=== PATIENT | male | born 1970 | race Caucasian/White ===

== ENCOUNTER 2017-09-05 10:02 | Inpatient (IN) | payer BC ==
[2017-09-05 10:22] VITALS: BMI 21.4
--- NOTE | 2017-09-05 13:09 | HP ---
COWS - Scale Resting Pulse: 1= [place] 81-100 Sweatin= Chills/Flushing Restless Observation: 3= Extraneous Movement Pupil Size: 2= Moderately Dilated Bone or Joint Aches: 4=Acute Joint/Muscle Pain Runny Nose/ Eye Tearin= Runny Nose/Eyes GI Upset > 30mins: 2= Nausea/Diarrhea Tremor Observation: 1= Tremor [place], Not Seen Yawning Observation: 1= 1-2x During Session Anxiety or Irritability: 2=Irritable/Anxious Goose Flesh Skin: 0=Smooth Skin COWS Score: 19 CIWA Score - CIWA Score Nausea/Vomitin (NAUSEA, NO VOMITING) Muscle Tremors: 3 Anxiety: 4-Mod. Anxious/Guarded Agitation: 4-Moderately Restless Paroxysmal Sweats: 1-Minimal Palms Moist Orientation: 0-Oriented Tacttile Disturbances: 3-Moderate Itch/Numb/Burn Auditory Disturbances: 0-None Visual Disturbances: 0-None Headache: 0-None Present CIWA-Ar Total Score: 18 Admission ROS S - HPI Chief Complaint: WITHDRAWAL SX FRO ALCOHOL AND HEROIN Allergies/Adverse Reactions: Allergies Allergy/AdvReac Type Severity Reaction Status Date / Time Fish Containing Products Allergy Severe Hives Verified 09/05/17 12:29 No Known Drug Allergies Allergy Verified 09/05/17 12:29 History of Present Illness: 47 Y/O H/M WITH A HX OF ALCOHOL, HEROIN AND COCAINE DEPENDENCE SEEKING DETOX TX. PT HAS MULTIPLE TX EPISODES. PT IS CURRENTLY ON ANTIRETROVIRAL THERAPY. VERIFIED WITH PT'S PHARMACIST, CHEY AT [address] [place] [address] PHARMACY. Exam Limitations: No Limitations - Ebola screening Have you traveled outside of the country in the last 21 days: No (N) Have you had contact with anyone from an Ebola affected area: No Have you been sick,other than usual withdrawal symptoms: No Do you have a fever: No - Review of Systems Constitutional: Chills, Loss of Appetite, Night Sweats, Changes in sleep, Unintentional Wgt. Loss EENT: reports: Blurred Vision, Tearing, Nose Congestion, Dental Problems (UPPER DENTURE) Respiratory: reports: Shortness of Breath (HX ASTHMA), Wheezing Cardiac: reports: No Symptoms Reported GI: reports: Constipated, Diarrhea, Nausea, Poor Appetite, Poor Fluid Intake, Abdominal cramping : reports: No Symptoms Reported Musculoskeletal: reports: Back Pain, Muscle Pain Integumentary: reports: No Symptoms Reported Neuro: reports: Tremors Endocrine: reports: No Symptoms Reported Hematology: reports: Anemia Psychiatric: reports: Orientated x3, Anxious, Depressed Other Systems: Reviewed and Negative Patient History - Patient Medical History Hx Anemia: Yes (taking medication) Hx Asthma: Yes (Pt is on MDI.) Hx Chronic Obstructive Pulmonary Disease (COPD): No Hx Cancer: No Hx Cardiac Disorders: No Hx Congestive Heart Failure: No Hx Hypertension: No Hx Hypercholesterolemia: No Hx Pacemaker: No HX Cerebrovascular Accident: No Hx Seizures: No Hx Dementia: No Hx Diabetes: No Hx Gastrointestinal Disorders: No Hx Liver Disease: No Hx Genitourinary Disorders: No Hx Sexually Transmitted Disorders: No Hx Renal Disease (ESRD): No Hx Thyroid Disease: No Hx Human Immunodeficiency Virus (HIV): Yes (AIDS-FROILANADA,NESTOR,REMAT) Hx Hepatitis C: No Hx Depression: Yes Hx Suicide Attempt: Yes (Tried to overdose in 2013;DENIES S/H IDEATION) Hx Bipolar Disorder: Yes Hx Schizophrenia: No - Patient Surgical History Past Surgical History: No Hx Neurologic Surgery: No Hx Cataract Extraction: No Hx Cardiac Surgery: No Hx Lung Surgery: No Hx Breast Surgery: No Hx Breast Biopsy: No Hx Abdominal Surgery: No Hx Appendectomy: No Hx Cholecystectomy: No Hx Genitourinary Surgery: No Hx Orthopedic Surgery: No Anesthesia Reaction: No - PPD History Previous Implant?: Yes Documented Results: Negative w/o proof Implanted On Prior [facility] Admission?: Yes Date: 10/18/15 Results: 0 mm PPD to be Administered?: Yes - Reproductive History Patient is a Female of Child Bearing Age (11 -55 yrs old): No (MALE) - Smoking Cessation Smoking history: Current every day smoker Have you smoked in the past 12 months: Yes Aproximately how many cigarettes per day: 20 Hx Chewing Tobacco Use: No Initiated information on smoking cessation: Yes 'Breaking Loose' booklet given: 09/05/17 - Substance & Tx. History Hx Alcohol Use: Yes (VODKA) Hx Substance Use: Yes (HEROIN/COCAINE) Substance Use Type: Alcohol, Cocaine, Heroin Hx Substance Use Treatment: Yes (LAST TX AT [facility] ) - Substances Abused Heroin Route: Inhalation Frequency: Daily Amount used: 20 bags Age of first use: 18 Date of Last Use: 09/04/17 Alcohol Route: Oral Frequency: Daily Amount used: 1 pint vodka Age of first use: 14 Date of Last Use: 09/04/17 Cocaine Route: Smoking Frequency: Daily Amount used: 20 bags Age of first use: 30 Date of Last Use: 09/04/17 Family Disease History - Family Disease History Family Disease History: Diabetes: Grandparent (HTN-), Father (HTN- ), Mother (HTN), Other: Grandparent, Father, Mother Admission Physical Exam [facility] - Vital Signs Vital Signs: Vital Signs - 24 hr 09/05/17 10:21 Temperature 98.2 F Pulse Rate 96 H Respiratory 18 Rate Blood Pressure 150/85 - Physical General Appearance: Yes: Moderate Distress, Irritable, Anxious HEENTM: Yes: EOMI, Normocephalic, JACQUELINE, Pharynx Normal, Nasal Congestion, Rhinorrhea Respiratory: Yes: Chest Non-Tender, No Respiratory Distress, Wheezing Neck: Yes: No masses,lesions,Nodules, Supple, Trachea in good position Breast: Yes: Breast Exam Deferred Cardiology: Yes: Regular Rhythm, Regular Rate, S1, S2 Abdominal: Yes: Normal Bowel Sounds, Non Tender, Flat Genitourinary: Yes: Other (N/C) Back: Yes: Within Normal Limits Musculoskeletal: Yes: full range of Motion, Gait Steady Extremities: Yes: Normal Range of Motion, Non-Tender Neurological: Yes: 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 NML intact, Fully Oriented, Alert, Motor Strength 5/5 Integumentary: Yes: Dry, Warm Lymphatic: Yes: Within Normal Limits - Diagnostic (1) Alcohol dependence with uncomplicated withdrawal Current Visit: Yes Status: Acute (2) Asthma Current Visit: Yes Status: Chronic (3) Cocaine dependence, uncomplicated Current Visit: Yes Status: Acute (4) AIDS Current Visit: Yes Status: Chronic (5) Opioid dependence with withdrawal Current Visit: Yes Status: Acute (6) Anemia Current Visit: Yes Status: Suspected Cleared for Admission [facility] - Detox or Rehab [facility] Level of Care: Medically Managed Detox Regimen/Protocol: Methadone/Librium [facility] Breath Alcohol Content Breath Alcohol Content: 0 Urine Drug Screen - Results Drug Screen Negative: No Urine Drug Screen Results: RD-Cocaine, OPI-Opiates, BZO-Benzodiazepines
[2017-09-05] MEDS ORDERED: chlordiazePOXIDE HCL 25 MG CAPSULE PO PRN (13:25)
[2017-09-05] MEDS ORDERED: MAGNESIUM HYDROX 2400MG/30ML ORAL SUSPENSION 30 ML CUP PO PRN (13:25)
[2017-09-05] MEDS ORDERED: MAG HYDROX/AL HYDROX/SIMETH 30 ML UNIT-DOSE CUP PO PRN (13:25)
[2017-09-05] MEDS ORDERED: NICOTINE POLACRILEX 4 MG GUM BC PRN (13:25)
[2017-09-05] MEDS ORDERED: ACETAMINOPHEN 325 MG TABLET (FP) PO PRN (13:25)
[2017-09-05] MEDS ORDERED: P-EPHED 60MG/TRIPROLIDI 2.5MG TABLET PO PRN (13:25)
[2017-09-05] MEDS ORDERED: IBUPROFEN 400 MG TABLET (FP) PO PRN (13:25)
[2017-09-05] MEDS ORDERED: MAGNESIUM CITRATE 300 ML BOTTLE PO PRN (13:25)
[2017-09-05] MEDS ORDERED: LOPERAMIDE HCL 2 MG CAPSULE PO PRN (13:25)
[2017-09-05] MEDS ORDERED: guaiFENesin/D-METHORPHAN HB 10 ML UNIT-DOSE CUPS PO PRN (13:25)
[2017-09-05] MEDS ORDERED: MENTHOL/PHENOL 1 EACH UD MM PRN (13:25)
[2017-09-05] MEDS ORDERED: ALBUTEROL SO4 0.083% IH SOL 2.5 MG/3 ML VIAL.NEB. NEB SCH (14:00)
[2017-09-05] MEDS ORDERED: RITONAVIR 100 MG TABLET PO SCH (15:30)
[2017-09-05] MEDS ORDERED: EMTRICITABINE 200MG/TENOFOVIR 300MG PO SCH (15:30)
[2017-09-05] MEDS ORDERED: chlordiazePOXIDE HCL 25 MG CAPSULE PO ONE (15:30)
[2017-09-05] MEDS ORDERED: METHADONE HCL 10 MG TABLET (FOR DETOX USE ONLY) PO ONE ×2 (15:30→23:00)
[2017-09-05] MEDS: chlordiazePOXIDE HCL 25 MG CAPSULE PO SCH ×2 (16:55→22:29)
[2017-09-05] MEDS: SULFAMETHOXAZOLE/TRIMETHOPRIM 800MG/160MG D.S. TABLET PO SCH (16:56)
[2017-09-05] MEDS: ATAZANAVIR SO4 300 MG CAPSULE PO SCH (16:56)
[2017-09-05] MEDS: NICOTINE 21 MG/24 HOURS TOPICAL PATCH TD SCH (17:00)
[2017-09-05 17:15] LABS: HEMATOCRIT 44.1 % (35.4-49); MCH 28.7 pg (25.7-33.7); MCHC 31.7 g/dl (32.0-35.9); MEAN CELL VOLUME 90.5 fl (80-96); MEAN PLT VOLUME 10.4 fl (7.5-11.1); PLATELET COUNT 175 K/MM3 (134-434); RBC 4.87 M/mm3 (4.00-5.60); WHITE BLOOD COUNT 3.7 K/mm3 (4.0-10.0)
[2017-09-05 17:23] LABS: ALBUMIN 3.4 g/dl (3.4-5.0); ANION GAP 5 (8-16); BILIRUBIN,TOTAL 0.5 mg/dL (0.2-1.0); BLOOD UREA NITROGEN 8 mg/dL (7-18); CALCIUM 8.5 mg/dL (8.5-10.1); CHLORIDE 108 mmol/L (98-107); CO2 31 mmol/L (21-32); CREATININE 1.1 mg/dL (0.7-1.3); GLUCOSE,RANDOM 103 mg/dL (74-106); POTASSIUM 3.8 mmol/L (3.5-5.1); SGOT/AST 28 U/L (15-37); SGPT/ALT 24 U/L (12-78); SODIUM 144 mmol/L (136-145); TOT PROT 7.6 g/dl (6.4-8.2)
[2017-09-05 17:24] LABS: ALK PHOS 90 U/L (45-117)
[2017-09-05] MEDS: ALBUTEROL SO4 18 GM HFA INHALER IH PRN (21:21)
[2017-09-05] MEDS: THIAMINE HCL 100 MG TABLET (FP) PO SCH (22:28)
[2017-09-06] MEDS: ALBUTEROL SO4 0.083% IH SOL 2.5 MG/3 ML VIAL.NEB. NEB PRN ×2 (04:29→15:45)
[2017-09-06 05:08] LABS: URINE APPEARANCE TURBID; URINE BILIRUBIN NEGATIVE (NEGATIVE); URINE BLOOD NEGATIVE (NEGATIVE); URINE COLOR DKYELLOW; URINE GLUCOSE (UA) NEGATIVE (NEGATIVE); URINE KETONE NEGATIVE (NEGATIVE); URINE LEUK ESTERASE NEGATIVE (NEGATIVE); URINE NITRITE NEGATIVE (NEGATIVE); URINE PROTEIN NEGATIVE (NEGATIVE); URINE UROBILINOGEN NEGATIVE mg/dL (0.2-1.0)
[2017-09-06] MEDS: chlordiazePOXIDE HCL 25 MG CAPSULE PO SCH ×4 (06:19→22:46)
[2017-09-06] MEDS: ALBUTEROL SO4 18 GM HFA INHALER IH PRN ×2 (06:21→18:23)
[2017-09-06] MEDS: EMTRICITABINE 200MG/TENOFOVIR 300MG PO SCH (08:22)
[2017-09-06] MEDS: ATAZANAVIR SO4 300 MG CAPSULE PO SCH (08:22)
[2017-09-06] MEDS: RITONAVIR 100 MG TABLET PO SCH (08:22)
[2017-09-06] MEDS ORDERED: METHADONE HCL 10 MG TABLET (FOR DETOX USE ONLY) PO SCH (10:00)
--- NOTE | 2017-09-06 10:03 | PN ---
[facility] CIWA - CIWA Score Nausea/Vomitin Muscle Tremors: 3 Anxiety: 3 Agitation: 2 Paroxysmal Sweats: 1-Minimal Palms Moist Orientation: 0-Oriented Tacttile Disturbances: 1-Very Mild Itch/Numbness Auditory Disturbances: 1-Very Mild Visual Disturbances: 0-None Headache: 2-Mild CIWA-Ar Total Score: 16 [facility] COWS - Scale Resting Pulse: 2= [place] 101-120 Sweatin= Chills/Flushing Restless Observation: 3= Extraneous Movement Pupil Size: 1= Pupils >than Normal Bone or Joint Aches: 2= Severe Diffuse Aches Runny Nose/ Eye Tearin= Runny Nose/Eyes GI Upset > 30mins: 2= Nausea/Diarrhea Tremor Observation of Outstretched Hands: 2= Slight Tremor Visible Yawning Observation: 1= 1-2x During Session Anxiety or Irritability: 2=Irritable/Anxious Goose Flesh Skin: 0=Smooth Skin COWS Score: 18 S Progress Note (SOAP) Subjective: ALERT,IRRITABLE,ANXIOUS,INTERRUPTED SLEEP,TREMOR,PAIN IN THE BODY AND BACK Objective: 09/06/17 10:02 Vital Signs Temperature 96.1 F L 09/06/17 09:55 Pulse Rate 103 H 09/06/17 09:55 Respiratory Rate 20 09/06/17 09:55 Blood Pressure 131/91 09/06/17 09:55 O2 Sat by Pulse Oximetry (%) EKG NSR NO CHEST PAIN,NO SOB,NO DIZZINESS Laboratory Last Values WBC 3.7 K/mm3 (4.0-10.0) L 09/05/17 13:30 RBC 4.87 M/mm3 (4.00-5.60) 09/05/17 13:30 Hgb 14.0 GM/dL (11.7-16.9) 09/05/17 13:30 Hct 44.1 % (35.4-49) 09/05/17 13:30 MCV 90.5 fl (80-96) 09/05/17 13:30 MCH 28.7 pg (25.7-33.7) 09/05/17 13:30 MCHC 31.7 g/dl (32.0-35.9) L 09/05/17 13:30 RDW 15.0 % (11.9-15.9) D 09/05/17 13:30 Plt Count 175 K/MM3 (134-434) D 09/05/17 13:30 MPV 10.4 fl (7.5-11.1) D 09/05/17 13:30 Sodium 144 mmol/L (136-145) 09/05/17 13:30 Potassium 3.8 mmol/L (3.5-5.1) 09/05/17 13:30 Chloride 108 mmol/L (98-107) H 09/05/17 13:30 Carbon Dioxide 31 mmol/L (21-32) 09/05/17 13:30 Anion Gap 5 (8-16) L 09/05/17 13:30 BUN 8 mg/dL (7-18) D 09/05/17 13:30 Creatinine 1.1 mg/dL (0.7-1.3) 09/05/17 13:30 Creat Clearance w eGFR > 60 (>60) 09/05/17 13:30 Random Glucose 103 mg/dL (74-106) D 09/05/17 13:30 Calcium 8.5 mg/dL (8.5-10.1) 09/05/17 13:30 Total Bilirubin 0.5 mg/dL (0.2-1.0) 09/05/17 13:30 AST 28 U/L (15-37) D 09/05/17 13:30 ALT 24 U/L (12-78) 09/05/17 13:30 Alkaline Phosphatase 90 U/L (45-117) 09/05/17 13:30 Total Protein 7.6 g/dl (6.4-8.2) 09/05/17 13:30 Albumin 3.4 g/dl (3.4-5.0) 09/05/17 13:30 Urine Color Dkyellow 09/05/17 06:30 Urine Appearance Turbid 09/05/17 06:30 Urine pH 5.0 (5.0-8.0) 09/05/17 06:30 Ur Specific [place] 1.014 (1.001-1.035) 09/05/17 06:30 Urine Protein Negative (NEGATIVE) 09/05/17 06:30 Urine Glucose (UA) Negative (NEGATIVE) 09/05/17 06:30 Urine Ketones Negative (NEGATIVE) 09/05/17 06:30 Urine Blood Negative (NEGATIVE) 09/05/17 06:30 Urine Nitrite Negative (NEGATIVE) 09/05/17 06:30 Urine Bilirubin Negative (NEGATIVE) 09/05/17 06:30 Urine Urobilinogen Negative mg/dL (0.2-1.0) 09/05/17 06:30 Ur Leukocyte Esterase Negative (NEGATIVE) 09/05/17 06:30 RPR Titer Nonreactive (NONREACTIVE) 09/05/17 13:30 Assessment: 09/06/17 10:03 WITHDRAWAL SYMPTOM Plan: CONTINUE DETOX
[2017-09-06] MEDS: PRENATAL VITAMINS W/ FOLIC ACID TABLET (FP) PO SCH (10:40)
[2017-09-06] MEDS: SULFAMETHOXAZOLE/TRIMETHOPRIM 800MG/160MG D.S. TABLET PO SCH (10:40)
[2017-09-06] MEDS: NICOTINE 21 MG/24 HOURS TOPICAL PATCH TD SCH (10:43)
[2017-09-06] MEDS ORDERED: FLU VACCINE QUAD 60 MCG/0.5 ML (MDV 17-18) IM ONE ×2 (12:00→14:15)
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
--- NOTE | 2017-09-06 15:19 | EKG ---
Test Reason : Blood Pressure : / mmHG Vent. Rate : 088 BPM Atrial Rate : 088 BPM P-R Int : 174 ms QRS Dur : 092 ms QT Int : 326 ms P-R-T Axes : 038 057 042 degrees QTc Int : 394 ms NORMAL SINUS RHYTHM POSSIBLE LEFT ATRIAL ENLARGEMENT NONSPECIFIC ST ABNORMALITY ABNORMAL ECG NO PREVIOUS ECGS AVAILABLE Confirmed by Donovan Euceda MD ([id number]) on 09/06/2017 3:19:04 PM Referred By: Confirmed By:Donovan Euceda MD
[2017-09-06] MEDS: THIAMINE HCL 100 MG TABLET (FP) PO SCH (22:45)
[2017-09-06] MEDS: QUEtiapine FUMARATE 100 MG TABLET (FP) PO SCH (22:46)
[2017-09-07] MEDS: chlordiazePOXIDE HCL 25 MG CAPSULE PO SCH ×2 (06:12→12:51)
[2017-09-07] MEDS: ATAZANAVIR SO4 300 MG CAPSULE PO SCH (07:18)
[2017-09-07] MEDS: EMTRICITABINE 200MG/TENOFOVIR 300MG PO SCH (07:18)
[2017-09-07] MEDS: RITONAVIR 100 MG TABLET PO SCH (07:18)
[2017-09-07] MEDS: ALBUTEROL SO4 18 GM HFA INHALER IH PRN ×2 (08:51→14:38)
--- NOTE | 2017-09-07 10:20 | PN ---
[facility] CIWA - CIWA Score Nausea/Vomitin Muscle Tremors: 3 Anxiety: 3 Agitation: 2 Paroxysmal Sweats: 1-Minimal Palms Moist Orientation: 0-Oriented Tacttile Disturbances: 1-Very Mild Itch/Numbness Auditory Disturbances: 1-Very Mild Visual Disturbances: 0-None Headache: 2-Mild CIWA-Ar Total Score: 16 [facility] COWS - Scale Resting Pulse: 1= [place] 81-100 Sweatin= Chills/Flushing Restless Observation: 3= Extraneous Movement Pupil Size: 1= Pupils >than Normal Bone or Joint Aches: 2= Severe Diffuse Aches Runny Nose/ Eye Tearin= Runny Nose/Eyes GI Upset > 30mins: 2= Nausea/Diarrhea Tremor Observation of Outstretched Hands: 2= Slight Tremor Visible Yawning Observation: 1= 1-2x During Session Anxiety or Irritability: 2=Irritable/Anxious Goose Flesh Skin: 0=Smooth Skin COWS Score: 17 [facility] Progress Note (SOAP) Subjective: ALERT,IRRITABLE,ANXIOUS,INTERRUPTED SLEEP,TREMOR,PAIN IN THE BODY AND BACK Objective: 09/07/17 10:19 Vital Signs Temperature 96.9 F L 09/07/17 06:20 Pulse Rate 83 09/07/17 06:20 Respiratory Rate 18 09/07/17 06:20 Blood Pressure 90/50 09/07/17 06:20 O2 Sat by Pulse Oximetry (%) Assessment: 09/07/17 10:19 WITHDRAWAL SYMPTOM Plan: CONTINUE DETOX
[2017-09-07] MEDS: METHADONE HCL 5 MG TABLET (FOR DETOX USE ONLY) PO SCH (10:36)
[2017-09-07] MEDS: PRENATAL VITAMINS W/ FOLIC ACID TABLET (FP) PO SCH (10:36)
[2017-09-07] MEDS: SULFAMETHOXAZOLE/TRIMETHOPRIM 800MG/160MG D.S. TABLET PO SCH (10:36)
[2017-09-07] MEDS: NICOTINE 21 MG/24 HOURS TOPICAL PATCH TD SCH (10:37)
[2017-09-07] MEDS: ALBUTEROL SO4 0.083% IH SOL 2.5 MG/3 ML VIAL.NEB. NEB PRN (16:12)
[2017-09-07] MEDS: chlordiazePOXIDE 5 MG CAPSULE PO SCH ×2 (17:57→22:46)
--- NOTE | 2017-09-07 21:44 | PN ---
S Progress Note Note: fever 101.5 tylenal 650 mg po x 1 99.1 patient is alert oriented x 3, able to tolerate fluid and food well denies gi distress increase oral fluid continue monitoring
[2017-09-07] MEDS: THIAMINE HCL 100 MG TABLET (FP) PO SCH (22:47)
[2017-09-07] MEDS: QUEtiapine FUMARATE 100 MG TABLET (FP) PO SCH (22:47)
[2017-09-08] MEDS: chlordiazePOXIDE 5 MG CAPSULE PO SCH ×2 (06:24→10:38)
--- NOTE | 2017-09-08 10:24 | PN ---
[facility] Progress Note (SOAP) Subjective: ALERT,IRRITABLE,ANXIOUS,INTERRUPTED SLEEP,PAIN IN THE BODY Objective: 09/08/17 10:23 Vital Signs Temperature 98.4 F 09/08/17 10:01 Pulse Rate 102 H 09/08/17 10:01 Respiratory Rate 20 09/08/17 10:01 Blood Pressure 121/57 09/08/17 10:01 O2 Sat by Pulse Oximetry (%) Assessment: 09/08/17 10:23 WITHDRAWAL SYMPTOM Plan: CONTINUE DETOX
[2017-09-08] MEDS: ATAZANAVIR SO4 300 MG CAPSULE PO SCH (10:37)
[2017-09-08] MEDS: RITONAVIR 100 MG TABLET PO SCH (10:37)
[2017-09-08] MEDS: METHADONE HCL 5 MG TABLET (FOR DETOX USE ONLY) PO SCH (10:38)
[2017-09-08] MEDS: PRENATAL VITAMINS W/ FOLIC ACID TABLET (FP) PO SCH (10:38)
[2017-09-08] MEDS: EMTRICITABINE 200MG/TENOFOVIR 300MG PO SCH (10:38)
[2017-09-08] MEDS: SULFAMETHOXAZOLE/TRIMETHOPRIM 800MG/160MG D.S. TABLET PO SCH (10:38)
[2017-09-08] MEDS: NICOTINE 21 MG/24 HOURS TOPICAL PATCH TD SCH (10:39)
[2017-09-08] MEDS: ALBUTEROL SO4 18 GM HFA INHALER IH PRN ×2 (10:42→22:21)
--- NOTE | 2017-09-08 15:31 | PN ---
[facility] Progress Note Note: less withdrawal symptom,medication adjust,discharge in am
[2017-09-08] MEDS: chlordiazePOXIDE HCL 10 MG CAPSULE PO SCH ×2 (18:16→22:35)
[2017-09-08] MEDS: THIAMINE HCL 100 MG TABLET (FP) PO SCH (22:20)
[2017-09-08] MEDS: QUEtiapine FUMARATE 100 MG TABLET (FP) PO SCH (22:20)
[2017-09-09] MEDS ORDERED: METHADONE HCL 5 MG TABLET (FOR DETOX USE ONLY) PO ONE (06:00)
[2017-09-09] MEDS: chlordiazePOXIDE HCL 10 MG CAPSULE PO SCH ×2 (06:14→10:38)
[2017-09-09 06:17] VITALS: BP 102/59; PULSE 81; TEMP 97.1
[2017-09-09] MEDS: RITONAVIR 100 MG TABLET PO SCH (07:37)
[2017-09-09] MEDS: ATAZANAVIR SO4 300 MG CAPSULE PO SCH (07:37)
[2017-09-09] MEDS: EMTRICITABINE 200MG/TENOFOVIR 300MG PO SCH (07:38)
[2017-09-09] MEDS ORDERED: METHADONE HCL 10 MG TABLET (FOR DETOX USE ONLY) PO SCH (10:00)
--- NOTE | 2017-09-09 10:05 | DS ---
[facility] Detox Discharge Summary Admission Date: 09/05/17 Discharge Date: 09/09/17 - History Present History: Alcohol Dependence, Cannabis Dependence, Opioid Dependence Additional Comments: follow up with after care program as arrangement Pertinent Past History: asthma aids - Physical Exam Results Vital Signs: Vital Signs Temperature 97.1 F L 09/09/17 06:00 Pulse Rate 81 09/09/17 06:00 Respiratory Rate 18 09/09/17 06:00 Blood Pressure 102/59 09/09/17 06:00 O2 Sat by Pulse Oximetry (%) Pertinent Admission Physical Exam Findings: withdrawal symptom and finding - Treatment Hospital Course: Detox Protocol Followed, Responded well, Discharged Condition Good, Rehab Referral Accepted Patient has Accepted a Rehab Referral to: [facility] - Medication Discharge Medications: Ambulatory Orders Emtricitabine/Tenofovir [Truvada -] 1 tab PO DAILY 02/01/14 Ritonavir [Norvir] 100 mg PO DAILY 02/01/14 Albuterol Sulfate Inhaler - [Ventolin HFA Inhaler -] 2 inh PO Q4H PRN #1 inhaler 10/20/15 Sulfamethoxazole/Trimethoprim [Bactrim DS -] 1 each PO DAILY #30 tablet Atazanavir [Reyataz -] 300 mg PO DAILY@0800 09/05/17 Quetiapine Fumarate [Seroquel -] 50 mg PO BID 09/05/17 Quetiapine Fumarate [Seroquel -] 200 mg PO HS 09/05/17 - Diagnosis (1) Opioid dependence with withdrawal Current Visit: Yes Status: Acute (2) Alcohol dependence with uncomplicated withdrawal Current Visit: Yes Status: Acute (3) Cocaine dependence, uncomplicated Current Visit: Yes Status: Acute (4) AIDS Current Visit: Yes Status: Chronic (5) Asthma Current Visit: Yes Status: Chronic - AMA Did Patient Leave Against Medical Advice: No
[2017-09-09] MEDS: PRENATAL VITAMINS W/ FOLIC ACID TABLET (FP) PO SCH (10:36)
[2017-09-09] MEDS: SULFAMETHOXAZOLE/TRIMETHOPRIM 800MG/160MG D.S. TABLET PO SCH (10:36)
[2017-09-09] MEDS: NICOTINE 21 MG/24 HOURS TOPICAL PATCH TD SCH (10:37)
[2017-09-10] MEDS ORDERED: METHADONE HCL 5 MG TABLET (FOR DETOX USE ONLY) PO SCH (06:00)
== END 2017-09-09 11:05 | disposition home or self-care (01) | DRG 773 ==
LOC: YASAS 10:02 → Y6N 15:01
PROVIDERS: ADMIT Internal Medicine; ATTEND Internal Medicine
PROC: HZ2ZZZZ Detoxification Services for Substance Abuse Treatment (ICD-10-PCS; principal; 2017-09-05)
DX: F11.23 Opioid dependence with withdrawal (principal); F10.230 Alcohol dependence with withdrawal, uncomplicated; F14.20 Cocaine dependence, uncomplicated; F31.9 Bipolar disorder, unspecified; F20.9 Schizophrenia, unspecified; F33.9 Major depressive disorder, recurrent, unspecified; B20 Human immunodeficiency virus [HIV] disease; J44.9 Chronic obstructive pulmonary disease, unspecified; Z91.5 Personal history of self-harm; Z59.0 Homelessness
CPT/HCPCS: 36415; 71046-TC; 80053; 81003; 85027; 86593; 90688; 93005; 93010; 94640

== ENCOUNTER 2018-02-16 15:22 | Inpatient (IN) | payer BC ==
[2018-02-16 16:33] VITALS: BMI 26.2
--- NOTE | 2018-02-16 17:40 | HP ---
CIWA Score - CIWA Score Nausea/Vomitin Muscle Tremors: 2 Anxiety: 3 Agitation: 4-Moderately Restless Paroxysmal Sweats: 2 Orientation: 1-Uncertain about Date Tacttile Disturbances: 0-None Auditory Disturbances: 0-None Visual Disturbances: 0-None Headache: 0-None Present CIWA-Ar Total Score: 14 Admission ROS S - HPI Chief Complaint: " I just want to get my life together" Allergies/Adverse Reactions: Allergies Allergy/AdvReac Type Severity Reaction Status Date / Time Fish Containing Products Allergy Severe Hives Verified 02/16/18 17:02 lorazepam [From Ativan] Allergy Severe Rash Verified 02/16/18 17:03 No Known Drug Allergies Allergy Verified 02/16/18 17:02 History of Present Illness: 47 yo male with hx of nicotine, cocaine, heroin, and alcohol dependence is here seeking detox. Utox positive for benzo as per patient he was prescribe xanax by his ID doctor, I-stop reviewed no history of controlled prescribed substances, Reference #: [id number]. Last detox [facility] 09/05/17 -09/09/17. PMHX: HIV+ (non- adherent with meds), depression, bipolar . Denies suicidal / homicidal ideation. Reports hx suicide attempt in the past. Denies hx of seizures or blackouts. Longest period of sobriety 3 years. Exam Limitations: No Limitations - Ebola screening Have you traveled outside of the country in the last 21 days: No (N) Have you had contact with anyone from an Ebola affected area: No Have you been sick,other than usual withdrawal symptoms: No Do you have a fever: No - Review of Systems Constitutional: Diaphoresis, Loss of Appetite, Changes in sleep EENT: reports: Dental Problems (missing teeth) Respiratory: reports: No Symptoms reported Cardiac: reports: No Symptoms Reported GI: reports: Nausea, Poor Appetite, Poor Fluid Intake : reports: No Symptoms Reported Musculoskeletal: reports: No Symptoms Reported Integumentary: reports: No Symptoms Reported Neuro: reports: No Symptoms reported Endocrine: reports: No Symptoms Reported Hematology: reports: See HPI Psychiatric: reports: Orientated x3, Anxious, Depressed Other Systems: Reviewed and Negative Patient History - Patient Medical History Hx Anemia: Yes (taking medication) Hx Asthma: Yes (Pt is on MDI.) Hx Chronic Obstructive Pulmonary Disease (COPD): No Hx Cancer: No Hx Cardiac Disorders: No Hx Congestive Heart Failure: No Hx Hypertension: No Hx Hypercholesterolemia: No Hx Pacemaker: No HX Cerebrovascular Accident: No Hx Seizures: No Hx Dementia: No Hx Diabetes: No Hx Gastrointestinal Disorders: No Hx Liver Disease: No Hx Genitourinary Disorders: No Hx Sexually Transmitted Disorders: No Hx Renal Disease (ESRD): No Hx Thyroid Disease: No Hx Human Immunodeficiency Virus (HIV): Yes (AIDS-TRUVADA,NOVIR,REYATAZ) Hx Hepatitis C: No Hx Depression: Yes (On Seroquel) Hx Suicide Attempt: Yes (Tried to overdose in 2013;DENIES S/H IDEATION) Hx Bipolar Disorder: Yes Hx Schizophrenia: No - Patient Surgical History Past Surgical History: No Hx Neurologic Surgery: No Hx Cataract Extraction: No Hx Cardiac Surgery: No Hx Lung Surgery: No Hx Breast Surgery: No Hx Breast Biopsy: No Hx Abdominal Surgery: No Hx Appendectomy: No Hx Cholecystectomy: No Hx Genitourinary Surgery: No Hx Section: No Hx Orthopedic Surgery: No Anesthesia Reaction: No - PPD History Previous Implant?: Yes Documented Results: Negative w/o proof Date: 10/18/15 ([facility]G) Results: 0 mm PPD to be Administered?: No - Smoking Cessation Smoking history: Current every day smoker Have you smoked in the past 12 months: Yes Aproximately how many cigarettes per day: 40 Hx Chewing Tobacco Use: No Initiated information on smoking cessation: Yes 'Breaking Loose' booklet given: 02/16/18 - Substance & Tx. History Hx Alcohol Use: Yes Hx Substance Use: Yes Substance Use Type: Alcohol, Cocaine, Heroin Hx Substance Use Treatment: Yes (Last detox [facility] 09/05/17 -09/09/17) - Substances Abused Alcohol Route: Oral Frequency: Daily Amount used: Beer - 20 cans, Liquor - 2-4 pints Age of first use: 14 Date of Last Use: 02/15/18 Heroin Route: Inhalation Frequency: Daily Amount used: 10 bags Age of first use: 28 Date of Last Use: 02/16/18 Family Disease History - Family Disease History Family Disease History: Diabetes: Grandparent (HTN-), Father (HTN- ), Mother (HTN), Other: Grandparent, Father, Mother Admission Physical Exam [facility] - Vital Signs Vital Signs: Vital Signs - 24 hr 02/16/18 16:30 Temperature 96.8 F L Pulse Rate 100 H Respiratory 20 Rate Blood Pressure 121/65 - Physical General Appearance: Yes: Mild Distress, Sweating, Anxious HEENTM: Yes: EOMI, Hearing grossly Normal, Normal ENT Inspection, Normocephalic , Normal Voice, JACQUELINE, Pharynx Normal, Tm's normal, Rhinorrhea, Other (poor dentition) Respiratory: Yes: Chest Non-Tender, Lungs Clear, Normal Breath Sounds, No Respiratory Distress, No Accessory Muscle Use Neck: Yes: No masses,lesions,Nodules, Trachea in good position Breast: Yes: Breast Exam Deferred Cardiology: Yes: Regular Rhythm, Regular Rate Abdominal: Yes: Normal Bowel Sounds, Non Tender, Flat, Soft Genitourinary: Yes: Within Normal Limits Back: Yes: Normal Inspection Musculoskeletal: Yes: full range of Motion, Gait Steady, Pelvis Stable Extremities: Yes: Normal Capillary Refill, Normal Inspection, Normal Range of Motion, Non-Tender 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 - Diagnostic (1) Cocaine dependence Current Visit: Yes Status: Chronic (2) Opioid dependence Current Visit: Yes Status: Chronic (3) Alcohol dependence with uncomplicated withdrawal Current Visit: Yes Status: Acute (4) AIDS Current Visit: Yes Status: Chronic (5) Asthma Current Visit: Yes Status: Chronic (6) Weight decrease Current Visit: Yes Status: Acute Cleared for Admission [facility] - Detox or Rehab [facility] Level of Care: Medically Managed Detox Regimen/Protocol: Librium [facility] Breath Alcohol Content Breath Alcohol Content: 0 Urine Drug Screen - Results Drug Screen Negative: No Urine Drug Screen Results: RD-Cocaine, BZO-Benzodiazepines
[2018-02-16] MEDS ORDERED: ALBUTEROL SO4 18 GM HFA INHALER IH PRN (17:47)
[2018-02-16] MEDS ORDERED: LOPERAMIDE HCL 2 MG CAPSULE PO PRN (17:50)
[2018-02-16] MEDS ORDERED: MAG HYDROX/AL HYDROX/SIMETH 30 ML UNIT-DOSE CUP PO PRN (17:50)
[2018-02-16] MEDS ORDERED: guaiFENesin/D-METHORPHAN HB 10 ML UNIT-DOSE CUPS PO PRN (17:50)
[2018-02-16] MEDS ORDERED: NICOTINE POLACRILEX 4 MG GUM BC PRN (17:50)
[2018-02-16] MEDS ORDERED: IBUPROFEN 400 MG TABLET (FP) PO PRN (17:50)
[2018-02-16] MEDS ORDERED: MAGNESIUM CITRATE 300 ML BOTTLE PO PRN (17:50)
[2018-02-16] MEDS ORDERED: MAGNESIUM HYDROX 2400MG/30ML ORAL SUSPENSION 30 ML CUP PO PRN (17:50)
[2018-02-16] MEDS ORDERED: P-EPHED 60MG/TRIPROLIDI 2.5MG TABLET PO PRN (17:50)
[2018-02-16] MEDS ORDERED: MENTHOL/PHENOL 1 EACH UD MM PRN (17:50)
[2018-02-16] MEDS ORDERED: ACETAMINOPHEN 325 MG TABLET (FP) PO PRN (17:50)
[2018-02-16] MEDS ORDERED: chlordiazePOXIDE HCL 25 MG CAPSULE PO PRN (17:50)
[2018-02-16] MEDS ORDERED: hydrOXYzine PAMOATE 50 MG CAPSULE (FP) PO PRN (17:50)
[2018-02-16] MEDS ORDERED: chlordiazePOXIDE HCL 25 MG CAPSULE PO ONE (18:30)
[2018-02-16] MEDS ORDERED: MELATONIN 5 MG TABLETS PO PRN (22:00)
[2018-02-16] MEDS: CYCLOBENZAPRINE HCL 5 MG TABLET PO SCH (23:14)
[2018-02-16] MEDS: chlordiazePOXIDE HCL 25 MG CAPSULE PO SCH (23:14)
[2018-02-16] MEDS: THIAMINE HCL 100 MG TABLET (FP) PO SCH (23:14)
[2018-02-17] MEDS: chlordiazePOXIDE HCL 25 MG CAPSULE PO SCH ×4 (06:18→22:53)
[2018-02-17] MEDS: CYCLOBENZAPRINE HCL 5 MG TABLET PO SCH ×3 (06:18→22:53)
--- NOTE | 2018-02-17 09:02 | EKG ---
Test Reason : Blood Pressure : / mmHG Vent. Rate : 084 BPM Atrial Rate : 084 BPM P-R Int : 132 ms QRS Dur : 082 ms QT Int : 348 ms P-R-T Axes : 067 062 054 degrees QTc Int : 411 ms NORMAL SINUS RHYTHM POSSIBLE LEFT ATRIAL ENLARGEMENT WHEN COMPARED WITH ECG OF 05-SEP-2017 17:16, NO SIGNIFICANT CHANGE WAS FOUND Confirmed by BRIAN OLSON MD ([id number]) on 02/17/2018 9:02:40 AM Referred By: Confirmed By:BRIAN OLSON MD
[2018-02-17 09:43] LABS: HEMATOCRIT 44.8 % (35.4-49); HEMOGLOBIN 14.5 GM/dL (11.7-16.9); MCH 29.7 pg (25.7-33.7); MCHC 32.4 g/dl (32.0-35.9); MEAN CELL VOLUME 91.7 fl (80-96); PLATELET COUNT 130 K/MM3 (134-434); RBC 4.89 M/mm3 (4.00-5.60); RDW 15.4 % (11.9-15.9); WHITE BLOOD COUNT 3.9 K/mm3 (4.0-10.0)
[2018-02-17] MEDS: SULFAMETHOXAZOLE/TRIMETHOPRIM 800MG/160MG D.S. TABLET PO SCH (10:45)
[2018-02-17] MEDS: PRENATAL VITAMINS W/ FOLIC ACID TABLET (FP) PO SCH (10:45)
[2018-02-17] MEDS: NICOTINE 21 MG/24 HOURS TOPICAL PATCH TD SCH (10:46)
[2018-02-17 10:52] LABS: ALBUMIN 2.9 g/dl (3.4-5.0); ANION GAP 7 (8-16); BLOOD UREA NITROGEN 14 mg/dL (7-18); CHLORIDE 110 mmol/L (98-107); CO2 26 mmol/L (21-32); GLUCOSE,RANDOM 95 mg/dL (74-106); POTASSIUM 4.2 mmol/L (3.5-5.1); SGOT/AST 20 U/L (15-37); SGPT/ALT 21 U/L (12-78); SODIUM 143 mmol/L (136-145)
[2018-02-17 10:55] LABS: ALK PHOS 69 U/L (45-117); BILIRUBIN,TOTAL 0.2 mg/dL (0.2-1.0); CREATININE 0.9 mg/dL (0.7-1.3); TOT PROT 6.4 g/dl (6.4-8.2)
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
[2018-02-17 18:12] LABS: URINE APPEARANCE CLEAR; URINE COLOR YELLOW
[2018-02-17 18:13] LABS: PH,URINE 5.5 (5.0-8.0); URINE BILIRUBIN NEGATIVE (<2.0 mg/dL); URINE KETONE NEGATIVE (NEGATIVE)
[2018-02-17 18:14] LABS: URINE LEUK ESTERASE NEGATIVE (NEGATIVE); URINE NITRITE NEGATIVE (NEGATIVE); URINE PROTEIN NEGATIVE (NEGATIVE)
[2018-02-17] MEDS: THIAMINE HCL 100 MG TABLET (FP) PO SCH (22:53)
[2018-02-17] MEDS: QUEtiapine FUMARATE 100 MG TABLET (FP) PO SCH (22:53)
[2018-02-18] MEDS: CYCLOBENZAPRINE HCL 5 MG TABLET PO SCH ×3 (06:13→23:13)
[2018-02-18] MEDS: chlordiazePOXIDE HCL 25 MG CAPSULE PO SCH ×3 (06:13→18:20)
--- NOTE | 2018-02-18 11:07 | PN ---
S CIWA - CIWA Score Nausea/Vomitin Muscle Tremors: 2 Anxiety: 2 Agitation: 2 Paroxysmal Sweats: 2 Orientation: 0-Oriented Tacttile Disturbances: 1-Very Mild Itch/Numbness Auditory Disturbances: 1-Very Mild Visual Disturbances: 1-Very Mild Sensitivity Headache: 2-Mild CIWA-Ar Total Score: 15 S Progress Note (SOAP) Subjective: Back pain, shakes and sweats Objective: 02/18/18 11:06 Vital Signs 02/18/18 02/18/18 02/18/18 03:30 06:26 10:34 Temperature 96.6 F L 97.9 F Pulse Rate 68 83 Respiratory 18 18 18 Rate Blood Pressure 127/72 127/85 Laboratory Last Values WBC 3.9 K/mm3 (4.0-10.0) L 02/17/18 07:00 RBC 4.89 M/mm3 (4.00-5.60) 02/17/18 07:00 Hgb 14.5 GM/dL (11.7-16.9) 02/17/18 07:00 Hct 44.8 % (35.4-49) 02/17/18 07:00 MCV 91.7 fl (80-96) 02/17/18 07:00 MCH 29.7 pg (25.7-33.7) 02/17/18 07:00 MCHC 32.4 g/dl (32.0-35.9) 02/17/18 07:00 RDW 15.4 % (11.9-15.9) 02/17/18 07:00 Plt Count 130 K/MM3 (134-434) L D 02/17/18 07:00 MPV 10.0 fl (7.5-11.1) 02/17/18 07:00 Sodium 143 mmol/L (136-145) 02/17/18 07:00 Potassium 4.2 mmol/L (3.5-5.1) 02/17/18 07:00 Chloride 110 mmol/L (98-107) H 02/17/18 07:00 Carbon Dioxide 26 mmol/L (21-32) 02/17/18 07:00 Anion Gap 7 (8-16) L 02/17/18 07:00 BUN 14 mg/dL (7-18) D 02/17/18 07:00 Creatinine 0.9 mg/dL (0.7-1.3) 02/17/18 07:00 Creat Clearance w eGFR > 60 (>60) 02/17/18 07:00 Random Glucose 95 mg/dL (74-106) 02/17/18 07:00 Calcium 8.0 mg/dL (8.5-10.1) L 02/17/18 07:00 Total Bilirubin 0.2 mg/dL (0.2-1.0) D 02/17/18 07:00 AST 20 U/L (15-37) D 02/17/18 07:00 ALT 21 U/L (12-78) 02/17/18 07:00 Alkaline Phosphatase 69 U/L (45-117) D 02/17/18 07:00 Total Protein 6.4 g/dl (6.4-8.2) 02/17/18 07:00 Albumin 2.9 g/dl (3.4-5.0) L 02/17/18 07:00 Urine Color Yellow 02/17/18 10:00 Urine Appearance Clear 02/17/18 10:00 Urine pH 5.5 (5.0-8.0) 02/17/18 10:00 Ur Specific [place] 1.020 (1.001-1.035) 02/17/18 10:00 Urine Protein Negative (NEGATIVE) 02/17/18 10:00 Urine Glucose (UA) 100 mg/dl (NEGATIVE) 02/17/18 10:00 Urine Ketones Negative (NEGATIVE) 02/17/18 10:00 Urine Blood Negative (NEGATIVE) 02/17/18 10:00 Urine Nitrite Negative (NEGATIVE) 02/17/18 10:00 Urine Bilirubin Negative (<2.0 mg/dL) 02/17/18 10:00 Urine Urobilinogen 1.0 mg/dL (0.2-1.0) 02/17/18 10:00 Ur Leukocyte Esterase Negative (NEGATIVE) 02/17/18 10:00 Labs noted Assessment: 02/18/18 11:06 Withdrawal sx Plan: Continue detox
[2018-02-18] MEDS: SULFAMETHOXAZOLE/TRIMETHOPRIM 800MG/160MG D.S. TABLET PO SCH (11:11)
[2018-02-18] MEDS: PRENATAL VITAMINS W/ FOLIC ACID TABLET (FP) PO SCH (11:12)
[2018-02-18] MEDS: NICOTINE 21 MG/24 HOURS TOPICAL PATCH TD SCH (11:13)
[2018-02-18] MEDS: QUEtiapine FUMARATE 100 MG TABLET (FP) PO SCH (23:13)
[2018-02-18] MEDS: chlordiazePOXIDE 5 MG CAPSULE PO SCH (23:13)
[2018-02-18] MEDS: THIAMINE HCL 100 MG TABLET (FP) PO SCH (23:14)
[2018-02-19] MEDS: chlordiazePOXIDE 5 MG CAPSULE PO SCH ×3 (06:16→17:55)
[2018-02-19] MEDS: CYCLOBENZAPRINE HCL 5 MG TABLET PO SCH ×2 (06:17→13:56)
[2018-02-19] MEDS: SULFAMETHOXAZOLE/TRIMETHOPRIM 800MG/160MG D.S. TABLET PO SCH (10:59)
[2018-02-19] MEDS: PRENATAL VITAMINS W/ FOLIC ACID TABLET (FP) PO SCH (11:00)
[2018-02-19] MEDS: NICOTINE 21 MG/24 HOURS TOPICAL PATCH TD SCH (11:00)
--- NOTE | 2018-02-19 14:37 | PN ---
[facility] Progress Note (SOAP) Subjective: feeling better no tremor less sweat sleep better at night Objective: 02/19/18 14:27 Vital Signs Temperature 97.7 F 02/19/18 13:15 Pulse Rate 77 02/19/18 13:15 Respiratory Rate 18 02/19/18 13:15 Blood Pressure 102/57 02/19/18 13:15 O2 Sat by Pulse Oximetry (%) Laboratory Last Values WBC 3.9 K/mm3 (4.0-10.0) L 02/17/18 07:00 RBC 4.89 M/mm3 (4.00-5.60) 02/17/18 07:00 Hgb 14.5 GM/dL (11.7-16.9) 02/17/18 07:00 Hct 44.8 % (35.4-49) 02/17/18 07:00 MCV 91.7 fl (80-96) 02/17/18 07:00 MCH 29.7 pg (25.7-33.7) 02/17/18 07:00 MCHC 32.4 g/dl (32.0-35.9) 02/17/18 07:00 RDW 15.4 % (11.9-15.9) 02/17/18 07:00 Plt Count 130 K/MM3 (134-434) L D 02/17/18 07:00 MPV 10.0 fl (7.5-11.1) 02/17/18 07:00 Sodium 143 mmol/L (136-145) 02/17/18 07:00 Potassium 4.2 mmol/L (3.5-5.1) 02/17/18 07:00 Chloride 110 mmol/L (98-107) H 02/17/18 07:00 Carbon Dioxide 26 mmol/L (21-32) 02/17/18 07:00 Anion Gap 7 (8-16) L 02/17/18 07:00 BUN 14 mg/dL (7-18) D 02/17/18 07:00 Creatinine 0.9 mg/dL (0.7-1.3) 02/17/18 07:00 Creat Clearance w eGFR > 60 (>60) 02/17/18 07:00 Random Glucose 95 mg/dL (74-106) 02/17/18 07:00 Calcium 8.0 mg/dL (8.5-10.1) L 02/17/18 07:00 Total Bilirubin 0.2 mg/dL (0.2-1.0) D 02/17/18 07:00 AST 20 U/L (15-37) D 02/17/18 07:00 ALT 21 U/L (12-78) 02/17/18 07:00 Alkaline Phosphatase 69 U/L (45-117) D 02/17/18 07:00 Total Protein 6.4 g/dl (6.4-8.2) 02/17/18 07:00 Albumin 2.9 g/dl (3.4-5.0) L 02/17/18 07:00 Urine Color Yellow 02/17/18 10:00 Urine Appearance Clear 02/17/18 10:00 Urine pH 5.5 (5.0-8.0) 02/17/18 10:00 Ur Specific [place] 1.020 (1.001-1.035) 02/17/18 10:00 Urine Protein Negative (NEGATIVE) 02/17/18 10:00 Urine Glucose (UA) 100 mg/dl (NEGATIVE) 02/17/18 10:00 Urine Ketones Negative (NEGATIVE) 02/17/18 10:00 Urine Blood Negative (NEGATIVE) 02/17/18 10:00 Urine Nitrite Negative (NEGATIVE) 02/17/18 10:00 Urine Bilirubin Negative (<2.0 mg/dL) 02/17/18 10:00 Urine Urobilinogen 1.0 mg/dL (0.2-1.0) 02/17/18 10:00 Ur Leukocyte Esterase Negative (NEGATIVE) 02/17/18 10:00 RPR Titer Nonreactive (NONREACTIVE) 02/17/18 07:00 lab noted Assessment: 02/19/18 14:28 mild withdrawal sx hiv Plan: medically supervised detox acknowledged hiv art adherence
[2018-02-20] MEDS: chlordiazePOXIDE HCL 10 MG CAPSULE PO SCH ×2 (06:00→08:49)
[2018-02-20] MEDS: CYCLOBENZAPRINE HCL 5 MG TABLET PO SCH ×2 (07:00→08:50)
[2018-02-20] MEDS: THIAMINE HCL 100 MG TABLET (FP) PO SCH (08:49)
[2018-02-20] MEDS: QUEtiapine FUMARATE 100 MG TABLET (FP) PO SCH (08:49)
--- NOTE | 2018-02-20 09:21 | PN ---
S Progress Note (SOAP) Subjective: ALERT,NO COMPLAINT Objective: 02/20/18 09:20 Vital Signs Temperature 97 F L 02/20/18 08:20 Pulse Rate 79 02/20/18 08:20 Respiratory Rate 18 02/20/18 08:20 Blood Pressure 115/71 02/20/18 08:20 O2 Sat by Pulse Oximetry (%) Assessment: 02/20/18 09:20 DETOX COMPLETED,NO WITHDRAWAL SYMPTOM Plan: DISCHARGE TODAY,FOLLOW UP WITH AFTER CARE PROGRAM ARRANGEMENT
--- NOTE | 2018-02-20 09:25 | DS ---
[facility] Detox Discharge Summary Admission Date: 02/16/18 Discharge Date: 02/20/18 - History Present History: Alcohol Dependence, Cocaine Dependence Additional Comments: FOLLOW UP WITH AFTER CARE PROGRAM AND FAMILY DOCTOR FOR FOLLOW UP Pertinent Past History: ASTHMA AIDS WEIGHT DECREASED - Physical Exam Results Vital Signs: Vital Signs Temperature 97 F L 02/20/18 08:20 Pulse Rate 79 02/20/18 08:20 Respiratory Rate 18 02/20/18 08:20 Blood Pressure 115/71 02/20/18 08:20 O2 Sat by Pulse Oximetry (%) Pertinent Admission Physical Exam Findings: WITHDRAWAL SIGNS AND SYMPTOM Laboratory Last Values WBC 3.9 K/mm3 (4.0-10.0) L 02/17/18 07:00 RBC 4.89 M/mm3 (4.00-5.60) 02/17/18 07:00 Hgb 14.5 GM/dL (11.7-16.9) 02/17/18 07:00 Hct 44.8 % (35.4-49) 02/17/18 07:00 MCV 91.7 fl (80-96) 02/17/18 07:00 MCH 29.7 pg (25.7-33.7) 02/17/18 07:00 MCHC 32.4 g/dl (32.0-35.9) 02/17/18 07:00 RDW 15.4 % (11.9-15.9) 02/17/18 07:00 Plt Count 130 K/MM3 (134-434) L D 02/17/18 07:00 MPV 10.0 fl (7.5-11.1) 02/17/18 07:00 Sodium 143 mmol/L (136-145) 02/17/18 07:00 Potassium 4.2 mmol/L (3.5-5.1) 02/17/18 07:00 Chloride 110 mmol/L (98-107) H 02/17/18 07:00 Carbon Dioxide 26 mmol/L (21-32) 02/17/18 07:00 Anion Gap 7 (8-16) L 02/17/18 07:00 BUN 14 mg/dL (7-18) D 02/17/18 07:00 Creatinine 0.9 mg/dL (0.7-1.3) 02/17/18 07:00 Creat Clearance w eGFR > 60 (>60) 02/17/18 07:00 Random Glucose 95 mg/dL (74-106) 02/17/18 07:00 Calcium 8.0 mg/dL (8.5-10.1) L 02/17/18 07:00 Total Bilirubin 0.2 mg/dL (0.2-1.0) D 02/17/18 07:00 AST 20 U/L (15-37) D 02/17/18 07:00 ALT 21 U/L (12-78) 02/17/18 07:00 Alkaline Phosphatase 69 U/L (45-117) D 02/17/18 07:00 Total Protein 6.4 g/dl (6.4-8.2) 02/17/18 07:00 Albumin 2.9 g/dl (3.4-5.0) L 02/17/18 07:00 Urine Color Yellow 02/17/18 10:00 Urine Appearance Clear 02/17/18 10:00 Urine pH 5.5 (5.0-8.0) 02/17/18 10:00 Ur Specific [place] 1.020 (1.001-1.035) 02/17/18 10:00 Urine Protein Negative (NEGATIVE) 02/17/18 10:00 Urine Glucose (UA) 100 mg/dl (NEGATIVE) 02/17/18 10:00 Urine Ketones Negative (NEGATIVE) 02/17/18 10:00 Urine Blood Negative (NEGATIVE) 02/17/18 10:00 Urine Nitrite Negative (NEGATIVE) 02/17/18 10:00 Urine Bilirubin Negative (<2.0 mg/dL) 02/17/18 10:00 Urine Urobilinogen 1.0 mg/dL (0.2-1.0) 02/17/18 10:00 Ur Leukocyte Esterase Negative (NEGATIVE) 02/17/18 10:00 RPR Titer Nonreactive (NONREACTIVE) 02/17/18 07:00 Vital Signs Temperature 97 F L 02/20/18 08:20 Pulse Rate 79 02/20/18 08:20 Respiratory Rate 18 02/20/18 08:20 Blood Pressure 115/71 02/20/18 08:20 O2 Sat by Pulse Oximetry (%) - Treatment Hospital Course: Detox Protocol Followed, Detoxed Safely, Responded well, Discharged Condition Good Patient has Accepted a Rehab Referral to: DECLINED - Medication Discharge Medications: Ambulatory Orders Emtricitabine/Tenofovir [Truvada -] 1 tab PO DAILY 02/01/14 Ritonavir [Norvir] 100 mg PO DAILY 02/01/14 Atazanavir [Reyataz -] 300 mg PO DAILY@0800 09/05/17 Quetiapine Fumarate [Seroquel -] 50 mg PO BID 09/05/17 Quetiapine Fumarate [Seroquel -] 100 mg PO HS 09/05/17 Ritonavir [Norvir -] 100 mg PO DAILY@0800 tab 09/09/17 Albuterol Sulfate Inhaler - [Ventolin HFA Inhaler -] 2 inh PO Q4H PRN #1 inhaler 02/19/18 Sulfamethoxazole/Trimethoprim [Bactrim DS -] 1 each PO DAILY #30 tablet - AMA Did Patient Leave Against Medical Advice: No
[2018-02-20 11:16] VITALS: BP 116/69; PULSE 101; TEMP 97.8
== END 2018-02-20 10:30 | disposition home or self-care (01) | DRG 774 ==
LOC: YASAS 15:22 → Y6N 17:33
PROVIDERS: ADMIT Family Medicine Addiction Medicine; ATTEND Family Medicine Addiction Medicine
PROC: HZ2ZZZZ Detoxification Services for Substance Abuse Treatment (ICD-10-PCS; principal; 2018-02-16)
DX: F10.230 Alcohol dependence with withdrawal, uncomplicated (principal); F14.20 Cocaine dependence, uncomplicated; F17.210 Nicotine dependence, cigarettes, uncomplicated; F19.24 Other psychoactive substance dependence with psychoactive substance-induced mood disorder; F39 Unspecified mood [affective] disorder; B20 Human immunodeficiency virus [HIV] disease; J45.909 Unspecified asthma, uncomplicated; D64.9 Anemia, unspecified; Z91.14 Patient's other noncompliance with medication regimen; Z91.013 Allergy to seafood; Z87.898 Personal history of other specified conditions; Z59.0 Homelessness
CPT/HCPCS: 36415; 80053; 81003; 85027; 86593; 93005; 93010

== ENCOUNTER 2018-08-17 10:32 | Inpatient (IN) | payer BC ==
[2018-08-17 10:40] VITALS: BMI 28.9
--- NOTE | 2018-08-17 12:41 | HP ---
CIWA Score Nausea/Vomitin-No Nausea/No Vomiting Muscle Tremors: 4-Moderate,w/Arms Extend Anxiety: 4-Mod. Anxious/Guarded Agitation: 1-Slight > Activity Paroxysmal Sweats: No Perspiration Orientation: 0-Oriented Tacttile Disturbances: 0-None Auditory Disturbances: 0-None Visual Disturbances: 0-None Headache: 0-None Present CIWA-Ar Total Score: 9 - Admission Criteria OASAS Guidelines: Admission for Medically Managed Detox: Requires at least one of the followin. CIWA greater than 12 2. Seizures within the past 24 hours 3. Delirium tremens within the past 24 hours 4. Hallucinations within the past 24 hours 5. Acute intervention needed for co occurring medical disorder 6. Acute intervention needed for co occurring psychiatric disorder 7. Severe withdrawal that cannot be handled at a lower level of care (continued vomiting, continued diarrhea, abnormal vital signs) requiring intravenous medication and/or fluids 8. Admission ROS S - HPI Allergies/Adverse Reactions: Allergies Allergy/AdvReac Type Severity Reaction Status Date / Time Fish Containing Products Allergy Severe Hives Verified 08/17/18 11:36 lorazepam [From Ativan] Allergy Severe Rash Verified 08/17/18 11:36 No Known Drug Allergies Allergy Verified 08/17/18 11:36 History of Present Illness: patient here requesting detox from etoh use , reports 3-5 x 6-pk / day , 3- 4 pints vodka/day , reports drinking upon awakening , first age of use 14 , sober x 3 years while in [place] , relapsed in March 2018 , denies seizures, + blackout x 1 , falls while intoxicated most recently a few days ago while in [facility] denies injuries to self or others , latest use 2 days ago , current symptoms as above . Denies DUI/ DWI . 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 Went to [facility] for back pain , claims was given Methadone , denies MMTP , + heroin use use > 10-15 years ago , denies IVDU . 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 PMHX : HIV since 1994 ( [facility] = [facility] ) clinic on ,did not bring meds, latest taken meds 2 days ago , left med in [place] , asthma ( since , hospitalized , intubated 15 years ago ) prior Proventil did not bring , claims finished PSHx : [facility] :bipolar d/o , SAD , reports Seroquel 50 mg bid and 100 mg qhs . latest this morning at [facility] SHx : lives w/ sister , denies legal issues - Ebola screening Have you traveled outside of the country in the last 21 days: No Have you had contact with anyone from an Ebola affected area: No Have you been sick,other than usual withdrawal symptoms: No Do you have a fever: No - Review of Systems Constitutional: See HPI EENT: reports: Blurred Vision (glasses) Respiratory: reports: Shortness of Breath, SOB with Exertion Cardiac: reports: No Symptoms Reported GI: reports: No Symptoms Reported : reports: No Symptoms Reported Musculoskeletal: reports: Back Pain Integumentary: reports: No Symptoms Reported Neuro: reports: Tremors Endocrine: reports: No Symptoms Reported Psychiatric: reports: Orientated x3, Agitated, Anxious Patient History - Patient Medical History Hx Anemia: Yes (taking medication) Hx Asthma: Yes Hx Chronic Obstructive Pulmonary Disease (COPD): No Hx Cancer: No Hx Cardiac Disorders: No Hx Congestive Heart Failure: No Hx Hypertension: No Hx Hypercholesterolemia: No Hx Pacemaker: No HX Cerebrovascular Accident: No Hx Seizures: No Hx Dementia: No Hx Diabetes: No Hx Gastrointestinal Disorders: No Hx Liver Disease: No Hx Genitourinary Disorders: No Hx Sexually Transmitted Disorders: No Hx Renal Disease (ESRD): No Hx Thyroid Disease: No Hx Human Immunodeficiency Virus (HIV): Yes (AIDS-TRUVADA,NOVIR,REYATAZ) Hx Hepatitis C: No Hx Depression: Yes Hx Suicide Attempt: No Hx Bipolar Disorder: Yes Hx Schizophrenia: Yes - Patient Surgical History Past Surgical History: No Hx Neurologic Surgery: No Hx Cataract Extraction: No Hx Cardiac Surgery: No Hx Lung Surgery: No Hx Breast Surgery: No Hx Breast Biopsy: No Hx Abdominal Surgery: No Hx Appendectomy: No Hx Cholecystectomy: No Hx Genitourinary Surgery: No Hx Section: No Hx Orthopedic Surgery: No Anesthesia Reaction: No - PPD History Previous Implant?: Yes Documented Results: Negative w/proof Implanted On Prior [facility] Admission?: Yes Date: 10/18/15 Results: 0 mm - Smoking Cessation Smoking history: Current every day smoker Have you smoked in the past 12 months: Yes Aproximately how many cigarettes per day: 40 Hx Chewing Tobacco Use: No Initiated information on smoking cessation: No - Substances Abused Crack Route: Smoking Frequency: Daily Amount used: $200 Age of first use: 35 Date of Last Use: 08/15/18 Alcohol-vodka/rum/beer Route: Oral Frequency: Daily Amount used: 4-5 pts./3-6 pks. Age of first use: 14 Date of Last Use: 08/15/18 Family Disease History - Family Disease History Family Disease History: Diabetes: Grandparent (HTN-), Father (HTN- ), Mother (HTN), Other: Grandparent, Father, Mother Admission Physical Exam [facility] - Vital Signs Vital Signs: Vital Signs - 24 hr 08/17/18 10:36 Temperature 96.9 F L Pulse Rate 92 H Respiratory 20 Rate Blood Pressure 111/68 - Physical General Appearance: Yes: Disheveled, Moderate Distress, Thin, Tremorous, Anxious HEENTM: Yes: Hearing grossly Normal, Normocephalic, Normal Voice, Other (poor dentition lower , upper : dentures) Respiratory: Yes: Chest Non-Tender, Lungs Clear, Normal Breath Sounds Neck: Yes: No masses,lesions,Nodules, Trachea in good position Breast: Yes: Breast Exam Deferred, Within Normal Limits Cardiology: Yes: Regular Rhythm, Regular Rate, S1, S2, Tachycardia Abdominal: Yes: Normal Bowel Sounds, Non Tender, Soft Genitourinary: Yes: Within Normal Limits Back: Yes: Normal Inspection Musculoskeletal: Yes: full range of Motion Extremities: Yes: Normal Capillary Refill, Normal Inspection, Tremors Neurological: Yes: Fully Oriented, Alert, Motor Strength 5/5 Integumentary: Yes: Normal Color, Dry, Warm - Diagnostic (1) Nicotine dependence Current Visit: Yes Status: Chronic Qualifiers: Nicotine product type: cigarettes (2) Alcohol dependence with uncomplicated withdrawal Current Visit: Yes Status: Acute (3) Cocaine dependence, uncomplicated Current Visit: No Status: Chronic S Breath Alcohol Content Breath Alcohol Content: 0 Urine Drug Screen - Results Drug Screen Negative: No Urine Drug Screen Results: RD-Cocaine, MTD-Methadone
[2018-08-17] MEDS ORDERED: MAGNESIUM HYDROX 2400MG/30ML ORAL SUSPENSION 30 ML CUP PO PRN (12:46)
[2018-08-17] MEDS ORDERED: ACETAMINOPHEN 325 MG TABLET (FP) PO PRN (12:46)
[2018-08-17] MEDS ORDERED: MENTHOL/PHENOL 1 EACH UD MM PRN (12:46)
[2018-08-17] MEDS ORDERED: MAGNESIUM CITRATE 300 ML BOTTLE PO PRN (12:46)
[2018-08-17] MEDS ORDERED: MAG HYDROX/AL HYDROX/SIMETH 30 ML UNIT-DOSE CUP PO PRN (12:46)
[2018-08-17] MEDS ORDERED: chlordiazePOXIDE HCL 25 MG CAPSULE PO PRN (12:46)
[2018-08-17] MEDS ORDERED: IBUPROFEN 400 MG TABLET (FP) PO PRN (12:46)
[2018-08-17] MEDS ORDERED: guaiFENesin/D-METHORPHAN HB 10 ML UNIT-DOSE CUPS PO PRN (12:46)
[2018-08-17] MEDS ORDERED: P-EPHED 60MG/TRIPROLIDI 2.5MG TABLET PO PRN (12:46)
[2018-08-17] MEDS: ALBUTEROL SO4 8 GM HFA INHALER IH PRN ×2 (14:51→18:00)
[2018-08-17] MEDS: NICOTINE 14 MG/24 HOURS TOPICAL PATCH TD SCH (14:51)
[2018-08-17] MEDS: chlordiazePOXIDE HCL 25 MG CAPSULE PO SCH ×2 (17:58→22:52)
[2018-08-17] MEDS ORDERED: MELATONIN 5 MG TABLETS PO PRN (22:00)
[2018-08-17] MEDS: THIAMINE HCL 100 MG TABLET (FP) PO SCH (22:52)
[2018-08-17 23:12] LABS: URINE APPEARANCE CLEAR; URINE BILIRUBIN NEGATIVE (<2.0 mg/dL); URINE COLOR YELLOW; URINE GLUCOSE (UA) NEGATIVE (NEGATIVE); URINE KETONE NEGATIVE (NEGATIVE); URINE LEUK ESTERASE NEGATIVE (NEGATIVE); URINE NITRITE NEGATIVE (NEGATIVE); URINE PROTEIN NEGATIVE (NEGATIVE)
[2018-08-17] MEDS ORDERED: NICOTINE POLACRILEX 4 MG GUM BUC PRN (23:25)
[2018-08-18] MEDS: chlordiazePOXIDE HCL 25 MG CAPSULE PO SCH ×4 (06:11→22:27)
--- NOTE | 2018-08-18 09:53 | CONSULT ---
[facility] Psychiatric Consult - Data Date of interview: 08/18/18 Admission source: [facility] Identifying data: Patient is a 49 year old single male, without children, unemployed, and supported by [employer]. This is one of multiple admissions for patient. Patient admitted to for alcohol and cocaine dependence. Substance Abuse History: Smoking Cessation. Smoking history: Current every day smoker. Have you smoked in the past 12 months: Yes. Aproximately how many cigarettes per day: 40. Hx Chewing Tobacco Use: No. Initiated information on smoking cessation: Yes. - Substances Abused. Crack. Route: Smoking. Frequency: Daily. Amount used: $200. Age of first use: 35. Date of Last Use: 08/15/18. Alcohol-vodka/rum/beer. Route: Oral. Frequency: Daily. Amount used: 4-5 pts./3-6 pks. Age of first use: 14. Date of Last Use: 08/15/18 Medical History: Anemia, asthma, HIV Psychiatric History: Patient reports multiple psychiatric hospitalizations, most recently at [facility] in January of 2018 after having a nervous breakdown. Patient is also known to [facility]. Patient denies current outpatient psychiatric care. States he is prescribed seroquel 200mg qhs from the HIV clinic in [place]. Pharmacy claims reviewed and patient most recently received a prescription of seroquel 200mg in May of 2018. Patient reports one suicide attempt by cutting. At present, patient reports feeling ok but is having difficulty sleeping. Physical/Sexual Abuse/Trauma History: denies. Mental Status Exam - Mental Status Exam Alert and Oriented to: Time, Place, Person Cognitive Function: Good Patient Appearance: Well Groomed Mood: Withdrawn, Euthymic Affect: Mood Congruent Patient Behavior: Cooperative Speech Pattern: Appropriate Voice Loudness: Moderately Soft/Quiet Thought Process: Intact, Goal Oriented Thought Disorder: Not Present Hallucinations: Denies Suicidal Ideation: Denies Homicidal Ideation: Denies Insight/Judgement: Poor Sleep: Poorly Appetite: Fair Muscle strength/Tone: Normal Gait/Station: Normal Psychiatric Findings - Problem List ([place] 1, 2,3) (1) Substance-induced sleep disorder Current Visit: Yes Status: Acute (2) Alcohol dependence with uncomplicated withdrawal Current Visit: Yes Status: Acute (3) Substance induced mood disorder Current Visit: Yes Status: Acute (4) Nicotine dependence Current Visit: Yes Status: Chronic Qualifiers: Nicotine product type: cigarettes (5) Cocaine dependence Current Visit: No Status: Chronic - Initial Treatment Plan Initial Treatment Plan: Psychoeducation provided. Detoxification in progress. Will order Seroquel 100mg qhs. Benefits and side effects discussed. Verbal consent given.
[2018-08-18] MEDS: PRENATAL VITAMINS W/ FOLIC ACID TABLET (FP) PO SCH (10:12)
[2018-08-18] MEDS: NICOTINE 14 MG/24 HOURS TOPICAL PATCH TD SCH (10:12)
[2018-08-18] MEDS: SULFAMETHOXAZOLE/TRIMETHOPRIM 800MG/160MG D.S. TABLET PO SCH (10:12)
[2018-08-18] MEDS: ALBUTEROL SO4 8 GM HFA INHALER IH PRN ×2 (10:14→21:27)
[2018-08-18 11:01] LABS: ALBUMIN 3.6 g/dl (3.4-5.0); ALK PHOS 59 U/L (45-117); ANION GAP 7 MMOL/L (8-16); BILIRUBIN,TOTAL 0.4 mg/dL (0.2-1); BLOOD UREA NITROGEN 16 mg/dL (7-18); CALCIUM 8.9 mg/dL (8.5-10.1); CHLORIDE 110 mmol/L (98-107); CO2 26 mmol/L (21-32); GLUCOSE,RANDOM 102 mg/dL (74-106); POTASSIUM 4.4 mmol/L (3.5-5.1); SGOT/AST 23 U/L (15-37); SGPT/ALT 19 U/L (13-61); SODIUM 142 mmol/L (136-145); TOT PROT 7.1 g/dl (6.4-8.2)
--- NOTE | 2018-08-18 11:05 | PN ---
[facility] CIWA - CIWA Score Nausea/Vomitin-Mild Nausea/No Vomiting Muscle Tremors: 2 Anxiety: 1-Mildly Anxious Agitation: 1-Slight > Activity Paroxysmal Sweats: 3 Orientation: 0-Oriented Tacttile Disturbances: 2-Mild Itch/Numbness/Burn Auditory Disturbances: 0-None Visual Disturbances: 0-None Headache: 0-None Present CIWA-Ar Total Score: 10 BHS Progress Note (SOAP) Subjective: interrupted sleep, sweats, low back pain Objective: 08/18/18 11:08 Vital Signs Temperature 97.7 F 08/18/18 09:04 Pulse Rate 69 08/18/18 09:04 Respiratory Rate 18 08/18/18 09:04 Blood Pressure 109/70 08/18/18 09:04 O2 Sat by Pulse Oximetry (%) Laboratory Tests 08/17/18 08/18/18 23:00 05:45 Sodium 142 Potassium 4.4 Chloride 110 H Carbon Dioxide 26 Anion Gap 7 L BUN 16 Creatinine 1.0 Creat Clearance w eGFR > 60 Random Glucose 102 Calcium 8.9 Total Bilirubin 0.4 AST 23 ALT 19 Alkaline Phosphatase 59 Total Protein 7.1 Albumin 3.6 Urine Color Yellow Urine Appearance Clear Urine pH 5.0 Ur Specific [place] 1.027 Urine Protein Negative Urine Glucose (UA) Negative Urine Ketones Negative Urine Blood Negative Urine Nitrite Negative Urine Bilirubin Negative Urine Urobilinogen 2.0 Ur Leukocyte Esterase Negative pt aox3 in nad ambulating Assessment: 08/18/18 11:08 withdrawal sx;s Plan: cont. detox increase fluids motrin prn f/up pending labs
[2018-08-18] MEDS ORDERED: PNEUMOC 13-VAL CONJ-DIP CRM/PF 0.5 ML DISP.SYRIN IM ONE (12:00)
[2018-08-18 12:48] LABS: HEMOGLOBIN 14.1 GM/dL (11.7-16.9); MCH 29.4 pg (25.7-33.7); MCHC 32.9 g/dl (32.0-35.9); MEAN CELL VOLUME 89.3 fl (80-96); MEAN PLT VOLUME 11.2 fl (7.5-11.1); PLATELET COUNT 158 K/MM3 (134-434); RBC 4.81 M/mm3 (4.00-5.60); WHITE BLOOD COUNT 3.8 K/mm3 (4.0-10.0)
[2018-08-18] MEDS: QUEtiapine FUMARATE 100 MG TABLET (FP) PO SCH (22:27)
[2018-08-18] MEDS: THIAMINE HCL 100 MG TABLET (FP) PO SCH (22:27)
[2018-08-19] MEDS: chlordiazePOXIDE HCL 25 MG CAPSULE PO SCH ×2 (05:46→10:30)
[2018-08-19] MEDS: NICOTINE 14 MG/24 HOURS TOPICAL PATCH TD SCH (10:30)
[2018-08-19] MEDS: PRENATAL VITAMINS W/ FOLIC ACID TABLET (FP) PO SCH (10:30)
[2018-08-19] MEDS: SULFAMETHOXAZOLE/TRIMETHOPRIM 800MG/160MG D.S. TABLET PO SCH (10:30)
--- NOTE | 2018-08-19 11:33 | PN ---
[facility] CI[facility] - CIWA Score Nausea/Vomitin-No Nausea/No Vomiting Muscle Tremors: 3 Anxiety: 3 Agitation: 3 Paroxysmal Sweats: 3 Orientation: 0-Oriented Tacttile Disturbances: 0-None Auditory Disturbances: 0-None Visual Disturbances: 0-None Headache: 0-None Present CIWA-Ar Total Score: 12 [facility] Progress Note (SOAP) Subjective: body aches shakes sweats Objective: 08/19/18 11:32 Vital Signs Temperature 97.7 F 08/19/18 09:59 Pulse Rate 76 08/19/18 09:59 Respiratory Rate 18 08/19/18 09:59 Blood Pressure 112/75 08/19/18 09:59 O2 Sat by Pulse Oximetry (%) Laboratory Tests 08/17/18 08/18/18 08/18/18 23:00 05:45 05:45 WBC 3.8 L RBC 4.81 Hgb 14.1 Hct 43.0 MCV 89.3 MCH 29.4 MCHC 32.9 RDW 15.0 Plt Count 158 D MPV 11.2 H D Sodium 142 Potassium 4.4 Chloride 110 H Carbon Dioxide 26 Anion Gap 7 L BUN 16 Creatinine 1.0 Creat Clearance w eGFR > 60 Random Glucose 102 Calcium 8.9 Total Bilirubin 0.4 AST 23 ALT 19 Alkaline Phosphatase 59 Total Protein 7.1 Albumin 3.6 Urine Color Yellow Urine Appearance Clear Urine pH 5.0 Ur Specific [place] 1.027 Urine Protein Negative Urine Glucose (UA) Negative Urine Ketones Negative Urine Blood Negative Urine Nitrite Negative Urine Bilirubin Negative Urine Urobilinogen 2.0 Ur Leukocyte Esterase Negative RPR Titer 08/18/18 05:45 WBC RBC Hgb Hct MCV MCH MCHC RDW Plt Count MPV Sodium Potassium Chloride Carbon Dioxide Anion Gap BUN Creatinine Creat Clearance w eGFR Random Glucose Calcium Total Bilirubin AST ALT Alkaline Phosphatase Total Protein Albumin Urine Color Urine Appearance Urine pH Ur Specific [place] Urine Protein Urine Glucose (UA) Urine Ketones Urine Blood Urine Nitrite Urine Bilirubin Urine Urobilinogen Ur Leukocyte Esterase RPR Titer Nonreactive aaox3 ambulating no acute distress Assessment: 08/19/18 11:33 withdrawal sx Plan: continue detox increase fluids
[2018-08-19] MEDS: chlordiazePOXIDE 5 MG CAPSULE PO SCH ×2 (17:27→22:18)
[2018-08-19] MEDS: ALBUTEROL SO4 8 GM HFA INHALER IH PRN (17:29)
[2018-08-19] MEDS: THIAMINE HCL 100 MG TABLET (FP) PO SCH (22:18)
[2018-08-19] MEDS: QUEtiapine FUMARATE 100 MG TABLET (FP) PO SCH (22:18)
[2018-08-20] MEDS: chlordiazePOXIDE 5 MG CAPSULE PO SCH ×2 (05:53→10:12)
[2018-08-20] MEDS: NICOTINE 14 MG/24 HOURS TOPICAL PATCH TD SCH (10:12)
[2018-08-20] MEDS: PRENATAL VITAMINS W/ FOLIC ACID TABLET (FP) PO SCH (10:12)
[2018-08-20] MEDS: SULFAMETHOXAZOLE/TRIMETHOPRIM 800MG/160MG D.S. TABLET PO SCH (10:12)
--- NOTE | 2018-08-20 11:02 | PN ---
[facility] Progress Note (SOAP) Subjective: feeling better sleep better at night no tremor less sweat return to infectious disease provider for medical mental and addiction issues Objective: 08/20/18 11:01 Vital Signs Temperature 98.1 F 08/20/18 09:20 Pulse Rate 88 08/20/18 09:20 Respiratory Rate 18 08/20/18 09:20 Blood Pressure 132/87 08/20/18 09:20 O2 Sat by Pulse Oximetry (%) Laboratory Last Values WBC 3.8 K/mm3 (4.0-10.0) L 08/18/18 05:45 RBC 4.81 M/mm3 (4.00-5.60) 08/18/18 05:45 Hgb 14.1 GM/dL (11.7-16.9) 08/18/18 05:45 Hct 43.0 % (35.4-49) 08/18/18 05:45 MCV 89.3 fl (80-96) 08/18/18 05:45 MCH 29.4 pg (25.7-33.7) 08/18/18 05:45 MCHC 32.9 g/dl (32.0-35.9) 08/18/18 05:45 RDW 15.0 % (11.9-15.9) 08/18/18 05:45 Plt Count 158 K/MM3 (134-434) D 08/18/18 05:45 MPV 11.2 fl (7.5-11.1) H D 08/18/18 05:45 Sodium 142 mmol/L (136-145) 08/18/18 05:45 Potassium 4.4 mmol/L (3.5-5.1) 08/18/18 05:45 Chloride 110 mmol/L (98-107) H 08/18/18 05:45 Carbon Dioxide 26 mmol/L (21-32) 08/18/18 05:45 Anion Gap 7 MMOL/L (8-16) L 08/18/18 05:45 BUN 16 mg/dL (7-18) 08/18/18 05:45 Creatinine 1.0 mg/dL (0.55-1.3) 08/18/18 05:45 Creat Clearance w eGFR > 60 (>60) 08/18/18 05:45 Random Glucose 102 mg/dL (74-106) 08/18/18 05:45 Calcium 8.9 mg/dL (8.5-10.1) 08/18/18 05:45 Total Bilirubin 0.4 mg/dL (0.2-1) 08/18/18 05:45 AST 23 U/L (15-37) 08/18/18 05:45 ALT 19 U/L (13-61) 08/18/18 05:45 Alkaline Phosphatase 59 U/L (45-117) 08/18/18 05:45 Total Protein 7.1 g/dl (6.4-8.2) 08/18/18 05:45 Albumin 3.6 g/dl (3.4-5.0) 08/18/18 05:45 Urine Color Yellow 08/17/18 23:00 Urine Appearance Clear 08/17/18 23:00 Urine pH 5.0 (5.0-8.0) 08/17/18 23:00 Ur Specific [place] 1.027 (1.010-1.035) 08/17/18 23:00 Urine Protein Negative (NEGATIVE) 08/17/18 23:00 Urine Glucose (UA) Negative (NEGATIVE) 08/17/18 23:00 Urine Ketones Negative (NEGATIVE) 08/17/18 23:00 Urine Blood Negative (NEGATIVE) 08/17/18 23:00 Urine Nitrite Negative (NEGATIVE) 08/17/18 23:00 Urine Bilirubin Negative (<2.0 mg/dL) 08/17/18 23:00 Urine Urobilinogen 2.0 mg/dL (0.2-1.0) 08/17/18 23:00 Ur Leukocyte Esterase Negative (NEGATIVE) 08/17/18 23:00 RPR Titer Nonreactive (NONREACTIVE) 08/18/18 05:45 lab noted Assessment: 08/20/18 11:02 mild withdrawal sx Plan: medically supervised detox
[2018-08-20 17:00] VITALS: BP 136/87; PULSE 97; TEMP 99.1
[2018-08-20] MEDS ORDERED: chlordiazePOXIDE HCL 10 MG CAPSULE PO SCH (17:00)
--- NOTE | 2018-08-20 17:22 | PN ---
[facility] Progress Note Note: called by nurse,patient did not want to complete treatment,all attempts to convince patient to stay by counselor,[facility] nursing staff with no avail, does not wan t to wait,signed release ama,
--- NOTE | 2018-08-20 17:27 | DS ---
[facility] Detox Discharge Summary Admission Date: 08/17/18 Discharge Date: 08/20/18 - History Present History: Alcohol Dependence, Pcp Dependence Additional Comments: patient signed release ama,did nit want to wait,follow up with pmd for medical problem,or to er if any problem Pertinent Past History: nicotine dependence weight losss - Physical Exam Results Vital Signs: Vital Signs Temperature 99.1 F 08/20/18 16:59 Pulse Rate 97 H 08/20/18 16:59 Respiratory Rate 20 08/20/18 16:59 Blood Pressure 136/87 08/20/18 16:59 O2 Sat by Pulse Oximetry (%) Pertinent Admission Physical Exam Findings: withdrawal symptom Vital Signs Temperature 99.1 F 08/20/18 16:59 Pulse Rate 97 H 08/20/18 16:59 Respiratory Rate 20 08/20/18 16:59 Blood Pressure 136/87 08/20/18 16:59 O2 Sat by Pulse Oximetry (%) Laboratory 08/17/18 08/18/18 08/18/18 23:00 05:45 05:45 WBC 3.8 K/mm3 L K/mm3 (4.0-10.0) RBC 4.81 M/mm3 M/mm3 (4.00-5.60) Hgb 14.1 GM/dL GM/dL (11.7-16.9) Hct 43.0 % % (35.4-49) MCV 89.3 fl fl (80-96) MCH 29.4 pg pg (25.7-33.7) MCHC 32.9 g/dl g/dl (32.0-35.9) RDW 15.0 % % (11.9-15.9) Plt Count 158 K/MM3 D K/MM3 (134-434) MPV 11.2 fl H D fl (7.5-11.1) Sodium 142 mmol/L mmol/L (136-145) Potassium 4.4 mmol/L mmol/L (3.5-5.1) Chloride 110 mmol/L H mmol/L (98-107) Carbon Dioxide 26 mmol/L mmol/L (21-32) Anion Gap 7 MMOL/L L MMOL/L (8-16) BUN 16 mg/dL mg/dL (7-18) Creatinine 1.0 mg/dL mg/dL (0.55-1.3) Creat Clearance w eGFR > 60 (>60) Random Glucose 102 mg/dL mg/dL (74-106) Calcium 8.9 mg/dL mg/dL (8.5-10.1) Total Bilirubin 0.4 mg/dL mg/dL (0.2-1) AST 23 U/L U/L (15-37) ALT 19 U/L U/L (13-61) Alkaline Phosphatase 59 U/L U/L (45-117) Total Protein 7.1 g/dl g/dl (6.4-8.2) Albumin 3.6 g/dl g/dl (3.4-5.0) Urine Color Yellow Urine Appearance Clear Urine pH 5.0 (5.0-8.0) Ur Specific [place] 1.027 (1.010-1.035) Urine Protein Negative (NEGATIVE) Urine Glucose (UA) Negative (NEGATIVE) Urine Ketones Negative (NEGATIVE) Urine Blood Negative (NEGATIVE) Urine Nitrite Negative (NEGATIVE) Urine Bilirubin Negative (<2.0 mg/dL) Urine Urobilinogen 2.0 mg/dL mg/dL (0.2-1.0) Ur Leukocyte Esterase Negative (NEGATIVE) RPR Titer 08/18/18 05:45 WBC RBC Hgb Hct MCV MCH MCHC RDW Plt Count MPV Sodium Potassium Chloride Carbon Dioxide Anion Gap BUN Creatinine Creat Clearance w eGFR Random Glucose Calcium Total Bilirubin AST ALT Alkaline Phosphatase Total Protein Albumin Urine Color Urine Appearance Urine pH Ur Specific [place] Urine Protein Urine Glucose (UA) Urine Ketones Urine Blood Urine Nitrite Urine Bilirubin Urine Urobilinogen Ur Leukocyte Esterase RPR Titer Nonreactive (NONREACTIVE) - Medication Discharge Medications: Ambulatory Orders Quetiapine Fumarate [Seroquel -] 50 mg PO BID 09/05/17 Quetiapine Fumarate [Seroquel -] 100 mg PO HS 09/05/17 Sulfamethoxazole/Trimethoprim [Bactrim DS -] 1 each PO DAILY #30 tablet Abacavir/Dolutegravir/Lamivudi [Triumeq Tablet] 1 each PO DAILY 08/17/18 Albuterol Sulfate Inhaler - [Ventolin HFA Inhaler -] 2 inh PO Q4H PRN #1 inhaler 08/20/18 Sulfamethoxazole/Trimethoprim [Bactrim DS -] 1 each PO DAILY #14 tablet - Diagnosis (1) Alcohol dependence with uncomplicated withdrawal Current Visit: Yes Status: Acute (2) Nicotine dependence Current Visit: Yes Status: Chronic Qualifiers: Nicotine product type: cigarettes (3) Weight decrease Current Visit: No Status: Acute (4) AIDS Current Visit: No Status: Chronic (5) Cocaine dependence, uncomplicated Current Visit: No Status: Chronic (6) Schizophrenia Current Visit: No Status: Chronic - AMA Did Patient Leave Against Medical Advice: Yes
== END 2018-08-20 17:16 | disposition left against medical advice (07) | DRG 770 ==
LOC: YASAS 10:32 → Y6N 13:29
PROC: HZ2ZZZZ Detoxification Services for Substance Abuse Treatment (ICD-10-PCS; principal; 2018-08-17)
DX: F10.230 Alcohol dependence with withdrawal, uncomplicated (principal); F14.20 Cocaine dependence, uncomplicated; F16.20 Hallucinogen dependence, uncomplicated; F17.210 Nicotine dependence, cigarettes, uncomplicated; F20.9 Schizophrenia, unspecified; F31.9 Bipolar disorder, unspecified; F19.24 Other psychoactive substance dependence with psychoactive substance-induced mood disorder; F19.282 Other psychoactive substance dependence with psychoactive substance-induced sleep disorder; B20 Human immunodeficiency virus [HIV] disease; D64.9 Anemia, unspecified; R63.4 Abnormal weight loss; Z68.28 Body mass index [BMI] 28.0-28.9, adult
CPT/HCPCS: 36415; 80053; 81003; 85027; 86593; 90670

== ENCOUNTER 2018-09-24 12:26 | Inpatient (IN) | payer BC ==
[2018-09-24 13:08] VITALS: BMI 29.5
--- NOTE | 2018-09-24 13:20 | HP ---
CIWA Score Nausea/Vomitin-Mild Nausea/No Vomiting Muscle Tremors: 4-Moderate,w/Arms Extend Anxiety: 3 Agitation: 1-Slight > Activity Paroxysmal Sweats: 1-Minimal Palms Moist Orientation: 1-Uncertain about Date Tacttile Disturbances: 1-Very Mild Itch/Numbness Auditory Disturbances: 1-Very Mild Visual Disturbances: 1-Very Mild Sensitivity Headache: 1-Very Mild CIWA-Ar Total Score: 15 - Admission Criteria [facility] Guidelines: Admission for Medically Managed Detox: Requires at least one of the followin. CIWA greater than 12 2. Seizures within the past 24 hours 3. Delirium tremens within the past 24 hours 4. Hallucinations within the past 24 hours 5. Acute intervention needed for co occurring medical disorder 6. Acute intervention needed for co occurring psychiatric disorder 7. Severe withdrawal that cannot be handled at a lower level of care (continued vomiting, continued diarrhea, abnormal vital signs) requiring intravenous medication and/or fluids 8. Admission ROS [facility] - [facility] Chief Complaint: WITHDRAWAL SYMPTOMS Allergies/Adverse Reactions: Allergies Allergy/AdvReac Type Severity Reaction Status Date / Time Fish Containing Products Allergy Severe Hives Verified 09/24/18 13:08 lorazepam [From Ativan] Allergy Severe Rash Verified 09/24/18 13:43 No Known Drug Allergies Allergy Verified 09/24/18 13:08 History of Present Illness: 48 Y.O. MAN WITH AN EXTENSIVE HISTORY OF ALCOHOL AND COCAINE DEPENDENCE IS HERE SEEKING DETOX SERVICES. HE HAS HAD MULTIPLE ADMISSIONS FOR DETOX, WITH THE LAST BEING ON 08/17/19-08/20/19; PT. LEFT AMA. PT. WAS [facility] FROM - AND WAS DIAGNOSED WITH COCAINE INDUCED ANXIETY DISORDER. THE PT. CURRENTLY DENIES SI/HI. Exam Limitations: No Limitations - Ebola screening Have you traveled outside of the country in the last 21 days: No (N) Have you had contact with anyone from an Ebola affected area: No Have you been sick,other than usual withdrawal symptoms: No Do you have a fever: No - Review of Systems Constitutional: Chills, Loss of Appetite, Night Sweats, Unintentional Wgt. Loss EENT: reports: Blurred Vision Respiratory: reports: Shortness of Breath GI: reports: No Symptoms Reported : reports: No Symptoms Reported Musculoskeletal: reports: No Symptoms Reported Neuro: reports: No Symptoms reported Endocrine: reports: No Symptoms Reported Hematology: reports: Anemia (MAE) Psychiatric: reports: Anxious, Depressed, other (BIPLAR) Other Systems: Reviewed and Negative Patient History - Patient Medical History Hx Anemia: Yes (NOT ON MEDS ) Hx Asthma: Yes (TAKES ALBUTEROL ) Hx Chronic Obstructive Pulmonary Disease (COPD): No Hx Cancer: No Hx Cardiac Disorders: No Hx Congestive Heart Failure: No Hx Hypertension: No Hx Hypercholesterolemia: No Hx Pacemaker: No HX Cerebrovascular Accident: No Hx Seizures: No Hx Dementia: No Hx Diabetes: No Hx Gastrointestinal Disorders: No Hx Liver Disease: No Hx Genitourinary Disorders: No Hx Sexually Transmitted Disorders: No Hx Renal Disease (ESRD): No Hx Thyroid Disease: No Hx Human Immunodeficiency Virus (HIV): Yes (Take Atripla and Truvada. Reports he last took on 09/20/18.) Hx Hepatitis C: No Hx Depression: Yes Hx Suicide Attempt: No Hx Bipolar Disorder: Yes Hx Schizophrenia: Yes - Patient Surgical History Past Surgical History: No Hx Neurologic Surgery: No Hx Cataract Extraction: No Hx Cardiac Surgery: No Hx Lung Surgery: No Hx Breast Surgery: No Hx Breast Biopsy: No Hx Abdominal Surgery: No Hx Appendectomy: No Hx Cholecystectomy: No Hx Genitourinary Surgery: No Hx Section: No Hx Orthopedic Surgery: No Anesthesia Reaction: No - PPD History Previous Implant?: Yes Documented Results: Negative w/proof Implanted On Prior [facility] Admission?: Yes Date: 10/18/15 Results: 0 mm PPD to be Administered?: Yes - Reproductive History Patient is a Female of Child Bearing Age (11 -55 yrs old): No - Smoking Cessation Smoking history: Current every day smoker Have you smoked in the past 12 months: Yes Aproximately how many cigarettes per day: 20 Hx Chewing Tobacco Use: No Initiated information on smoking cessation: Yes 'Breaking Loose' booklet given: 09/24/18 - Substance & Tx. History Hx Alcohol Use: Yes Hx Substance Use: Yes Substance Use Type: Alcohol, Cocaine Hx Substance Use Treatment: Yes (Detox: 08/17/18-08/20/18) - Substances Abused Alcohol Route: Oral Frequency: Daily Amount used: 1 BOTTLE VODKA Age of first use: 14 Date of Last Use: 09/24/18 Cocaine Route: Smoking Frequency: Daily Amount used: 3 BAGS Age of first use: 20 Date of Last Use: 09/24/18 Family Disease History - Family Disease History Family Disease History: Diabetes: Grandparent (HTN-), Father (HTN- ), Mother (HTN), Other: Grandparent, Father, Mother Admission Physical Exam [facility] - Vital Signs Vital Signs: Vital Signs - 24 hr 09/24/18 12:59 Temperature 98.6 F Pulse Rate 114 H Respiratory 18 Rate Blood Pressure 138/87 - Physical General Appearance: Yes: Irritable, Sweating, Anxious HEENTM: Yes: Hearing grossly Normal, Normocephalic, Normal Voice Respiratory: Yes: Chest Non-Tender, Lungs Clear, Normal Breath Sounds, No Respiratory Distress, No Accessory Muscle Use Neck: Yes: No masses,lesions,Nodules, Trachea in good position Breast: Yes: Breast Exam Deferred Cardiology: Yes: Regular Rhythm, Tachycardia Abdominal: Yes: Normal Bowel Sounds, Non Tender, Soft Back: Yes: Normal Inspection Extremities: Yes: Normal Capillary Refill, Normal Inspection, Normal Range of Motion, Non-Tender Neurological: Yes: Alert, Normal Mood/Affect, Normal Response Integumentary: Yes: Normal Color, Dry, Warm Lymphatic: Yes: Within Normal Limits - Diagnostic (1) Alcohol dependence with uncomplicated withdrawal Current Visit: Yes Status: Chronic (2) AIDS Current Visit: Yes Status: Chronic (3) Asthma Current Visit: Yes Status: Chronic (4) COPD - Chronic obstructive lung disease Current Visit: Yes Status: Chronic (5) Cocaine dependence, uncomplicated Current Visit: Yes Status: Chronic (6) Nicotine dependence Current Visit: Yes Status: Chronic Qualifiers: Nicotine product type: cigarettes Cleared for Admission [facility] - Detox or Rehab [facility] Level of Care: Medically Managed Detox Regimen/Protocol: Librium (Pt. reports that he is allergic to Ativan but not Librium. He has previously taken Librium here with not side-effects noted or reported. ) [facility] Breath Alcohol Content Breath Alcohol Content: 0 Urine Drug Screen - Results Drug Screen Negative: No Urine Drug Screen Results: THC-Marijuana, RD-Cocaine, BZO-Benzodiazepines
[2018-09-24] MEDS ORDERED: IBUPROFEN 400 MG TABLET (FP) PO PRN (13:24)
[2018-09-24] MEDS ORDERED: MENTHOL/PHENOL 1 EACH UD MM PRN (13:24)
[2018-09-24] MEDS ORDERED: ACETAMINOPHEN 325 MG TABLET (FP) PO PRN (13:24)
[2018-09-24] MEDS ORDERED: hydrOXYzine PAMOATE 50 MG CAPSULE (FP) PO PRN (13:24)
[2018-09-24] MEDS ORDERED: guaiFENesin/D-METHORPHAN HB 10 ML UNIT-DOSE CUPS PO PRN (13:24)
[2018-09-24] MEDS ORDERED: LOPERAMIDE HCL 2 MG CAPSULE PO PRN (13:24)
[2018-09-24] MEDS ORDERED: MAGNESIUM CITRATE 300 ML BOTTLE PO PRN (13:24)
[2018-09-24] MEDS ORDERED: P-EPHED 60MG/TRIPROLIDI 2.5MG TABLET PO PRN (13:24)
[2018-09-24] MEDS ORDERED: chlordiazePOXIDE HCL 25 MG CAPSULE PO PRN (13:24)
[2018-09-24] MEDS ORDERED: MAG HYDROX/AL HYDROX/SIMETH 30 ML UNIT-DOSE CUP PO PRN (13:24)
[2018-09-24] MEDS ORDERED: MAGNESIUM HYDROX 2400MG/30ML ORAL SUSPENSION 30 ML CUP PO PRN (13:24)
[2018-09-24] MEDS ORDERED: chlordiazePOXIDE HCL 25 MG CAPSULE PO ONE (13:24)
[2018-09-24] MEDS: chlordiazePOXIDE HCL 25 MG CAPSULE PO SCH ×2 (17:26→22:49)
[2018-09-24] MEDS ORDERED: MELATONIN 5 MG TABLETS PO PRN (22:00)
[2018-09-24] MEDS: EMTRICITABINE 200MG/TENOFOVIR 300MG PO SCH (22:49)
[2018-09-24] MEDS: THIAMINE HCL 100 MG TABLET (FP) PO SCH (22:49)
[2018-09-25] MEDS: chlordiazePOXIDE HCL 25 MG CAPSULE PO SCH ×4 (05:32→22:24)
[2018-09-25] MEDS: ALBUTEROL SO4 8 GM HFA INHALER IH PRN (05:33)
[2018-09-25 09:46] LABS: HEMATOCRIT 40.7 % (35.4-49); HEMOGLOBIN 13.7 GM/dL (11.7-16.9); MCH 30.1 pg (25.7-33.7); MCHC 33.7 g/dl (32.0-35.9); MEAN CELL VOLUME 89.2 fl (80-96); MEAN PLT VOLUME 10.5 fl (7.5-11.1); PLATELET COUNT 112 K/MM3 (134-434); RBC 4.57 M/mm3 (4.00-5.60); RDW 14.5 % (11.9-15.9); WHITE BLOOD COUNT 3.9 K/mm3 (4.0-10.0)
[2018-09-25 10:08] LABS: ALBUMIN 3.3 g/dl (3.4-5.0); ALK PHOS 86 U/L (45-117); ANION GAP 9 MMOL/L (8-16); BILIRUBIN,TOTAL 0.6 mg/dL (0.2-1); BLOOD UREA NITROGEN 16 mg/dL (7-18); CALCIUM 8.3 mg/dL (8.5-10.1); CHLORIDE 110 mmol/L (98-107); CO2 24 mmol/L (21-32); CREATININE 1.1 mg/dL (0.55-1.3); GLUCOSE,RANDOM 120 mg/dL (74-106); POTASSIUM 3.8 mmol/L (3.5-5.1); SGOT/AST 16 U/L (15-37); SGPT/ALT 18 U/L (13-61); SODIUM 143 mmol/L (136-145); TOT PROT 6.8 g/dl (6.4-8.2)
[2018-09-25] MEDS: PRENATAL VITAMINS W/ FOLIC ACID TABLET (FP) PO SCH (10:15)
[2018-09-25] MEDS: EMTRICITABINE 200MG/TENOFOVIR 300MG PO SCH (10:16)
--- NOTE | 2018-09-25 11:20 | CONSULT ---
[facility] Psychiatric Consult - Data Date of interview: 09/25/18 Admission source: [facility] Identifying data: This is a 48 years old male, single, childless, on HASSA Support, living alone, with history of Schizophrenis, is here seekinh detox, reportinf withdrawal symptoms from Alcohol and Cocaine. Patient reports long history of Alcoho, and Cocaine dependence. Substance Abuse History: Smoking history: Current every day smoker. Have you smoked in the past 12 months: Yes. Aproximately how many cigarettes per day: 20. Hx Chewing Tobacco Use: No. Initiated information on smoking cessation: Yes. 'Breaking Loose' booklet given: 09/24/18. - Substance & Tx. History. Hx Alcohol Use: Yes. Hx Substance Use: Yes. Substance Use Type: Alcohol, Cocaine. Hx Substance Use Treatment: Yes (Detox: 08/17/18-08/20/18). - Substances Abused. Alcohol. Route: Oral. Frequency: Daily. Amount used: 1 BOTTLE VODKA. Age of first use: 14. Date of Last Use: 09/24/18. Cocaine. Route: Smoking. Frequency: Daily. Amount used: 3 BAGS. Age of first use: 20. Date of Last Use: 09/24/18 Medical History: COPD, Asthma, Weight loss history, AIDs, Anemia history Psychiatric History: Patient reports history of Schizophrenia and Bipolar duisorder, reports most recent psychiatric admission at [facility] on 2017 due to auditory hallucinations, reports taking prior to admission: Seroquel 100mg po qhs. Patient minimizing pastpsychiatric history, denies suicidal, homicidal history. Patient is Non-Compliant with psychiatric medications. Physical/Sexual Abuse/Trauma History: Denies Additional Comment: Seroquel 100mg po qhs. OPbservation. Haldol 1mg po prn q4 for psychosisi and anxiety Mental Status Exam - Mental Status Exam Alert and Oriented to: Person Cognitive Function: Fair Patient Appearance: Unkempt Mood: Suspicious Affect: Constricted Patient Behavior: Talkative, Cooperative Speech Pattern: Excessive Voice Loudness: Normal Thought Process: Circumstantial Thought Disorder: Being Controlled Hallucinations: Denies Suicidal Ideation: Denies Homicidal Ideation: Denies Insight/Judgement: Fair Sleep: Difficulty falling asleep Appetite: Weight gain Muscle strength/Tone: Normal Gait/Station: Shuffling Additional Comments: Seroquel 100mg po qhs. OPbservation. Haldol 1mg po prn q4 for psychosisi and anxiety Psychiatric Findings - Problem List ([place] 1, 2,3) (1) AIDS Current Visit: Yes Status: Chronic (2) Alcohol dependence with uncomplicated withdrawal Current Visit: Yes Status: Chronic (3) Asthma Current Visit: Yes Status: Chronic (4) COPD - Chronic obstructive lung disease Current Visit: Yes Status: Chronic (5) Cocaine dependence, uncomplicated Current Visit: Yes Status: Chronic (6) Nicotine dependence Current Visit: Yes Status: Chronic Qualifiers: Nicotine product type: cigarettes (7) Alcohol dependence Current Visit: No Status: Active (8) Opioid dependence with withdrawal Current Visit: No Status: Acute (9) Substance induced mood disorder Current Visit: No Status: Acute (10) Substance-induced sleep disorder Current Visit: No Status: Acute (11) Weight decrease Current Visit: No Status: Acute (12) Bipolar I disorder Current Visit: No Status: Chronic Comment: Seroquel 100mg po qhs (13) MDD (major depressive disorder) Current Visit: No Status: Chronic Comment: Self reports. (14) Schizophrenia Current Visit: No Status: Chronic Comment: Self reports. (15) Anemia Current Visit: No Status: Suspected - Initial Treatment Plan Initial Treatment Plan: Seroquel 100mg po qhs. OPbservation. Haldol 1mg po prn q4 for psychosisi and anxiety
--- NOTE | 2018-09-25 11:21 | CONSULT ---
[facility] Psychiatric Consult - Data Date of interview: 09/25/18 Admission source: [facility] Identifying data: Smoking history: Current every day smoker. Have you smoked in the past 12 months: Yes. Aproximately how many cigarettes per day: 20. Hx Chewing Tobacco Use: No. Initiated information on smoking cessation: Yes. ' Breaking Loose' booklet given: 09/24/18. - Substance & Tx. History. Hx Alcohol Use: Yes. Hx Substance Use: Yes. Substance Use Type: Alcohol, Cocaine. Hx Substance Use Treatment: Yes (Detox: 08/17/18-08/20/18). - Substances Abused. Alcohol. Route: Oral. Frequency: Daily. Amount used: 1 BOTTLE VODKA. Age of first use: 14. Date of Last Use: 09/24/18. Cocaine. Route: Smoking. Frequency: Daily. Amount used: 3 BAGS. Age of first use: 20. Date of Last Use: 09/24/18
--- NOTE | 2018-09-25 12:27 | PN ---
S CIWA - CIWA Score Nausea/Vomitin-No Nausea/No Vomiting Muscle Tremors: 4-Moderate,w/Arms Extend Anxiety: 1-Mildly Anxious Agitation: 0-Normal Activity Paroxysmal Sweats: 3 Orientation: 0-Oriented Tacttile Disturbances: 2-Mild Itch/Numbness/Burn Auditory Disturbances: 0-None Visual Disturbances: 3-Moderate Sensitivity Headache: 0-None Present CIWA-Ar Total Score: 13 [facility] Progress Note (SOAP) Subjective: Interrupted Sleep, Sweating, Tremors, Body Aches. Objective: PATIENT A & O X 3. IN NO ACUTE DISTRESS. 09/25/18 12:25 Vital Signs Temperature 98.0 F 09/25/18 09:19 Pulse Rate 95 H 09/25/18 09:19 Respiratory Rate 18 09/25/18 09:19 Blood Pressure 128/77 09/25/18 09:19 O2 Sat by Pulse Oximetry (%) Laboratory Tests 09/25/18 09/25/18 07:00 07:00 WBC 3.9 L RBC 4.57 Hgb 13.7 Hct 40.7 MCV 89.2 MCH 30.1 MCHC 33.7 RDW 14.5 Plt Count 112 L D MPV 10.5 Sodium 143 Potassium 3.8 Chloride 110 H Carbon Dioxide 24 Anion Gap 9 BUN 16 Creatinine 1.1 Creat Clearance w eGFR > 60 Random Glucose 120 H Calcium 8.3 L Total Bilirubin 0.6 AST 16 ALT 18 Alkaline Phosphatase 86 Total Protein 6.8 Albumin 3.3 L LABS NOTED. RPR RESULT PENDING. 09/25/18 12:27 Assessment: 09/25/18 12:26 WITHDRAWAL SYMPTOMS. THROMBOCYTOPENIA. 09/25/18 12:26 Plan: CONTINUE DETOX. INCREASE DAILY PO FLUID INTAKE.
[2018-09-25] MEDS ORDERED: HALOPERIDOL 1 MG TABLET (FP) PO ONE (13:30)
[2018-09-25] MEDS ORDERED: QUEtiapine FUMARATE 100 MG TABLET (FP) PO SCH (22:00)
[2018-09-25] MEDS: THIAMINE HCL 100 MG TABLET (FP) PO SCH (22:24)
[2018-09-26] MEDS: chlordiazePOXIDE HCL 25 MG CAPSULE PO SCH ×2 (06:01→10:08)
[2018-09-26] MEDS: ALBUTEROL SO4 8 GM HFA INHALER IH PRN ×2 (06:15→10:09)
[2018-09-26 09:14] VITALS: BP 125/72; PULSE 79; TEMP 97.7
[2018-09-26] MEDS: PRENATAL VITAMINS W/ FOLIC ACID TABLET (FP) PO SCH (10:08)
[2018-09-26] MEDS: EMTRICITABINE 200MG/TENOFOVIR 300MG PO SCH (10:09)
--- NOTE | 2018-09-26 12:24 | PN ---
S CIWA - CIWA Score Nausea/Vomitin-No Nausea/No Vomiting Muscle Tremors: None Anxiety: 5 Agitation: 4-Moderately Restless Paroxysmal Sweats: 2 Orientation: 2-Disoriented Date<2 days Tacttile Disturbances: 0-None Auditory Disturbances: 0-None Visual Disturbances: 1-Very Mild Sensitivity Headache: 0-None Present CIWA-Ar Total Score: 14 [facility] Progress Note (SOAP) Subjective: Anxious, Sweating, Interrupted Sleep. Objective: PATIENT A & O X 2 (UNCERTAIN ABOUT CURRENT DAY / DATE). PATIENT OBSERVED AMBULATING ON UNIT. IN NO ACUTE DISTRESS. 09/26/18 12:24 Vital Signs Temperature 97.7 F 09/26/18 09:13 Pulse Rate 79 09/26/18 09:13 Respiratory Rate 18 09/26/18 09:13 Blood Pressure 125/72 09/26/18 09:13 O2 Sat by Pulse Oximetry (%) Laboratory Tests 09/25/18 09/25/18 09/25/18 07:00 07:00 07:00 WBC 3.9 L RBC 4.57 Hgb 13.7 Hct 40.7 MCV 89.2 MCH 30.1 MCHC 33.7 RDW 14.5 Plt Count 112 L D MPV 10.5 Sodium 143 Potassium 3.8 Chloride 110 H Carbon Dioxide 24 Anion Gap 9 BUN 16 Creatinine 1.1 Creat Clearance w eGFR > 60 Random Glucose 120 H Calcium 8.3 L Total Bilirubin 0.6 AST 16 ALT 18 Alkaline Phosphatase 86 Total Protein 6.8 Albumin 3.3 L RPR Titer Nonreactive LABS NOTED. Assessment: 09/26/18 12:25 WITHDRAWAL SYMPTOMS. THROMBOCYTOPENIA. 09/26/18 12:25 Plan: CONTINUE DETOX.
--- NOTE | 2018-09-26 12:30 | DS ---
[facility] Detox Discharge Summary Admission Date: 09/24/18 Discharge Date: 09/26/18 - History Present History: Alcohol Dependence, Cocaine Dependence, Opioid Dependence Additional Comments: PATIENT DOES NOT WISH TO REMAIN TO COMPLETE DETOX REGIMEN. RISKS OF LEAVING DETOX UNIT AGAINST MEDICAL ADVICE AND PRIOR TO COMPLETION OF DETOX REGIMEN EXPLAINED TO PATIENT. PATIENT ADVISED TO GO IMMEDIATELY TO NEAREST ER SHOULD ANY INTOLERABLE DETOX SYMPTOMS DEVELOP AT ANY TIME. PATIENT VERBALIZED UNDERSTANDING OF ALL INFORMATION / RECOMMENDATIONS PRESENTED TO HIM PRIOR TO DEPARTURE FROM DETOX UNIT. PATIENT LEFT DETOX UNIT IN STABLE MEDICAL CONDITION. Pertinent Past History: Bipolar I Disorder, H.I.V., Asthma, History of Anemia, Nicotine Dependence, Major Depressive Disorder, Thrombocytopenia, History of Schizophrenia, C.O.P.D. , Weight Loss. - Physical Exam Results Vital Signs: Vital Signs Temperature 97.7 F 09/26/18 09:13 Pulse Rate 79 09/26/18 09:13 Respiratory Rate 18 09/26/18 09:13 Blood Pressure 125/72 09/26/18 09:13 O2 Sat by Pulse Oximetry (%) Pertinent Admission Physical Exam Findings: WITHDRAWAL SYMPTOMS. Laboratory Tests 09/25/18 09/25/18 09/25/18 07:00 07:00 07:00 WBC 3.9 L RBC 4.57 Hgb 13.7 Hct 40.7 MCV 89.2 MCH 30.1 MCHC 33.7 RDW 14.5 Plt Count 112 L D MPV 10.5 Sodium 143 Potassium 3.8 Chloride 110 H Carbon Dioxide 24 Anion Gap 9 BUN 16 Creatinine 1.1 Creat Clearance w eGFR > 60 Random Glucose 120 H Calcium 8.3 L Total Bilirubin 0.6 AST 16 ALT 18 Alkaline Phosphatase 86 Total Protein 6.8 Albumin 3.3 L RPR Titer Nonreactive LABS NOTED. - Treatment Hospital Course: Detoxed Safely - Medication Discharge Medications: Ambulatory Orders Quetiapine Fumarate [Seroquel -] 50 mg PO BID 09/05/17 Quetiapine Fumarate [Seroquel -] 100 mg PO HS 09/05/17 Sulfamethoxazole/Trimethoprim [Bactrim DS -] 1 each PO DAILY #30 tablet Abacavir/Dolutegravir/Lamivudi [Triumeq Tablet] 1 each PO DAILY 08/17/18 Albuterol Sulfate Inhaler - [Ventolin HFA Inhaler -] 2 inh PO Q4H PRN #1 inhaler 08/20/18 Efavirenz/Emtricitab/Tenofovir [Atripla Tablet -] 200 mg PO DAILY 09/24/18 Emtricitabine/Tenofovir [Truvada] 200 tab PO DAILY 09/24/18 Quetiapine Fumarate [Seroquel] 100 mg PO HS #30 tablet 09/25/18 - Diagnosis (1) AIDS Status: Chronic (2) COPD - Chronic obstructive lung disease Status: Chronic (3) Asthma Status: Chronic (4) Bipolar I disorder Status: Chronic (5) Alcohol dependence with uncomplicated withdrawal Status: Chronic (6) Cocaine dependence, uncomplicated Status: Chronic (7) Anemia Status: Suspected Qualifiers: Anemia type: unspecified type Qualified Code(s): D64.9 - Anemia, unspecified (8) MDD (major depressive disorder) Status: Chronic Qualifiers: Major depression recurrence: unspecified whether recurrent Active/ Remission status: remission status unspecified Qualified Code(s): F32.9 - Major depressive disorder, single episode, unspecified (9) Weight decrease Status: Acute (10) Substance induced mood disorder Status: Acute (11) Nicotine dependence Status: Chronic Qualifiers: Nicotine product type: cigarettes Substance use status: uncomplicated Qualified Code(s): F17.210 - Nicotine dependence, cigarettes, uncomplicated (12) Substance-induced sleep disorder Status: Acute (13) Opioid dependence with withdrawal Status: Acute - AMA Did Patient Leave Against Medical Advice: Yes (PATIENT DID NOT WISH TO REMAIN TO COMPLETE DETOX REGIMEN.)
[2018-09-26] MEDS ORDERED: chlordiazePOXIDE 5 MG CAPSULE PO SCH (17:00)
[2018-09-27] MEDS ORDERED: chlordiazePOXIDE HCL 10 MG CAPSULE PO SCH (17:00)
== END 2018-09-26 11:34 | disposition left against medical advice (07) | DRG 770 ==
LOC: YASAS 12:26 → Y3N 13:36
PROVIDERS: ADMIT Neuromusculoskeletal Medicine & OMM; ATTEND Neuromusculoskeletal Medicine & OMM
PROC: HZ2ZZZZ Detoxification Services for Substance Abuse Treatment (ICD-10-PCS; principal; 2018-09-24)
DX: F11.23 Opioid dependence with withdrawal (principal); F10.230 Alcohol dependence with withdrawal, uncomplicated; F14.20 Cocaine dependence, uncomplicated; F17.210 Nicotine dependence, cigarettes, uncomplicated; F19.282 Other psychoactive substance dependence with psychoactive substance-induced sleep disorder; F19.24 Other psychoactive substance dependence with psychoactive substance-induced mood disorder; F31.9 Bipolar disorder, unspecified; F32.9 Major depressive disorder, single episode, unspecified; F20.9 Schizophrenia, unspecified; B20 Human immunodeficiency virus [HIV] disease; J44.9 Chronic obstructive pulmonary disease, unspecified; J45.909 Unspecified asthma, uncomplicated; D72.829 Elevated white blood cell count, unspecified; R63.4 Abnormal weight loss; Z68.29 Body mass index [BMI] 29.0-29.9, adult; Z86.2 Personal history of diseases of the blood and blood-forming organs and certain disorders involving the immune mechanism
CPT/HCPCS: 36415; 80053; 85027; 86593